=== PATIENT | female | born 1970 | race Caucasian/White ===

== ENCOUNTER → 2019-11-07 11:07 | Outpatient (BNVA) | payer MEDICAID, SELFPAY | PROVIDERS: PCP Registered Nurse; Visit Provider Registered Nurse | DX: Z79.899 Other long term (current) drug therapy (principal) | CPT/HCPCS: 80061; 80178; 83036 ==

== ENCOUNTER → 2019-12-11 11:00 | Outpatient (BNVA) | payer MEDICAID, SELFPAY | PROVIDERS: PCP Registered Nurse; Visit Provider Registered Nurse | DX: Z79.899 Other long term (current) drug therapy (principal); F31.61 Bipolar disorder, current episode mixed, mild | CPT/HCPCS: 80178 ==

== ENCOUNTER → 2020-01-09 10:48 | Outpatient (BNVA) | payer MEDICAID, SELFPAY | PROVIDERS: PCP Registered Nurse; Visit Provider Registered Nurse | DX: Z79.899 Other long term (current) drug therapy (principal) | CPT/HCPCS: 80178 ==

== ENCOUNTER → 2020-07-26 10:10 | Outpatient (BNVA) | payer MEDICAID, SELFPAY | PROVIDERS: PCP Registered Nurse; Visit Provider Registered Nurse | DX: Z79.899 Other long term (current) drug therapy (principal); F31.61 Bipolar disorder, current episode mixed, mild | CPT/HCPCS: 80053; 80178 ==

== ENCOUNTER → 2022-02-05 15:33 | Outpatient (BNVA) | payer MEDICAID, SELFPAY | PROVIDERS: PCP Registered Nurse; Visit Provider Emergency Medicine | DX: R06.02 Shortness of breath (principal); Z90.710 Acquired absence of both cervix and uterus; C76.2 Malignant neoplasm of abdomen | CPT/HCPCS: 71046 ==

== ENCOUNTER 2022-02-13 22:13 | Inpatient (IN) | payer MEDICAID, SELFPAY ==
[2022-02-13 22:27] VITALS: BP 195/106; PULSE 88; RESP 20; TEMP 36.6; O2SAT 97; BMI 38.7
[2022-02-13 23:15] LABS: Basophils # 0.1 10^3/uL (0.0-0.1); Basophils % 0.8 %; Eosinophils # 0.4 10^3/uL (0.0-0.8); Eosinophils % 4.6 %; Hematocrit 36.8 % (37.0-47.0); Hemoglobin 11.8 g/dL (11.5-15.3); Lymphocytes # 2.6 10^3/uL (0.8-4.8); Lymphocytes % 30.5 %; Mean Corpuscular HGB Conc 32.1 g/dL (30.0-36.0); Mean Corpuscular Hemoglobin 27.4 pg (28.0-34.0); Mean Corpuscular Volume 85.6 fl (81-99); Mean Platelet Volume 11.7 fL (7.4-10.4); Monocytes # 0.7 10^3/uL (0.2-0.9); Monocytes % 7.6 %; Neutrophils # 4.76 10^3/uL (1.8-7.7); Neutrophils % 55.9 %; Nucleated Red Blood Cells % 0 %; Platelet Count 262 10^3/cmm (130-400); Red Cell Distribution Width 13.6 % (12.1-15.1); White Blood Count 8.5 10^3/uL (4.0-10.0)
[2022-02-13 23:38] VITALS: BP 166/113; PULSE 86; RESP 20; O2SAT 96
[2022-02-13 23:39] LABS: Alanine Aminotransferase 18 U/L (0-33); Albumin Level 4.1 g/dL (3.5-5.2); Alkaline Phosphatase 57 IU/L (35-105); Anion Gap 18.2 (5-19); Aspartate Amino Transferase 18 U/L (0-32); Blood Urea Nitrogen 26 mg/dL (6-20); Calcium 8.9 mg/dL (8.5-10.5); Carbon Dioxide 21 mmol/L (22-29); Chloride 98 mmol/L (98-107); Globulin 2.8 g/dL (1.3-4.6); Glomerular Filtration Rate 43.2 mL/min (90-130); Glucose 169 mg/dL (65-115); Osmolality Calculated 285 mOsm/kg (285-295); Potassium 4.2 mmol/L (3.5-5.1); Sodium 133 mmol/L (136-145); Total Bilirubin 0.2 mg/dL (0.15-1.2); Total Protein 6.9 g/dL (6.6-8.7)
[2022-02-13 23:43] LABS: Acetaminophen < 5.0 ug/mL (10-30); Alcohol Level < 10 mg/dL (0-10); Salicylate < 0.3 mg/dL (3-10)
[2022-02-13 23:43] LABS: Add Urine Microscopic? NO; Charge for UA Resulting for Rev
[2022-02-13 23:45] LABS: Bilirubin Urine Neg (Negative); Blood Urine Neg (Negative); Glucose Urine UA 4+ (Normal); Ketones Urine Negative (Negative); Leukocyte Esterase Urine Negative (Negative); Nitrate Urine Negative (Negative); Protein Urine Neg (Negative); Specific Gravity, Urine 1.005 (1.005-1.030); Urine Appearance Clear (CLEAR); Urine Color Straw (Yellow); Urobilinogen Urine Norm (Negative); pH Urine 5 (5-7)
[2022-02-13 23:54] LABS: Amphetamines Screen Urine Negative (Negative); Barbiturates Screen Urine Negative (Negative); Benzodiazepines Screen Urine Negative (Negative); Cocaine Screen Urine Negative (Negative); Opiate Screen Urine Negative (Negative); PCP Screen Urine Negative (Negative); THC Screen Urine Negative (Negative)
[2022-02-14] VITALS: BP 180/116; PULSE 88; RESP 20; O2SAT 95
[2022-02-14] MEDS: amlodipine 10 mg Tablet PO (00:31)
[2022-02-14] MEDS: cloNIDine 0.1 mg Tablet 0.2 MG PO (00:31)
--- NOTE | 2022-02-14 00:31 | ED.C_ITS ---
HPI - Psych General: Chief Complaint: Psychiatric Symptoms Stated Complaint: Bi-Polar\SI Time Seen by Provider: 02/13/22 22:32 History of Present Illness: 51-year-old female with a history of bipolar disorder. She states she has not been hospitalized for depression since 2009. She had a hysterectomy 2 weeks ago roughly. Since that time she notes that her bipolar disorder has been hard to control . Her son says the same thing. He is with her this evening. She mention to nursing staff that at one point she thought her son was trying to kill her. She has had thoughts of harming herself, although she will not admit to a plan. She says soon after, but why would I want to hurt myself . She denies any fever. She denies increasing or worsening belly pain following surgery. No rashes or drainage. According to her and her son, she has been taking her medication appropriately. She did have a recent medication change, and is now taking vraylar. complaint: suicidal ideation and feels depressed Onset (ago): day(s) Duration: constant History of same: No Exacerbating factors: other Context: new medication(s) and significant life stressor Associated psychiatric symptoms: depression and suicidal ideation Associated symptoms: Reports delusions, depression, suicidal ideation and racing thoughts; Deny auditory hallucinations or visual hallucinations Treatments prior to arrival: none If self harm: admits thoughts of self harm Review of Systems Const: Denies: fever(s) or chills ENMT: Denies: throat pain Card: Denies: chest pain or palpitations Resp: Denies: dyspnea or productive cough GI: Reports: nausea; Denies: abdominal pain or vomiting Psych: Reports: depression and suicidal ideation; Denies: visual hallucinations or auditory hallucinations PFS ED PFSH: Medical History Abdominal malignancy Bipolar disorder, current episode manic severe with psychotic features Medication management Surgical History (Updated 02/05/22 @ 15:21 by OSIEL Desai) Status post hysterectomy Social History Smoking and tobacco status: never smoked Alcohol intake: never Female Reproductive History: Spontaneous abortions: No Physical Exam Const: GENERAL APPEARANCE: cooperative; not frail appearing ORIENTATION/CONSCIOUSNESS: Yes awake, Yes oriented to person and Yes oriented to place; not oriented to time HENMT: COMMON NORMALS: normocephalic, atraumatic and Normal external nose present HEAD & SCALP: normocephalic and atraumatic FACE & SINUS: normal facial exam NOSE: Normal external nose present Eye: COMMON NORMALS: Equal, round and reactive pupils present and EOMs intact bilaterally PUPIL: Yes Equal, round and reactive pupils present Chest: COMMONS NORMALS: normal inspection of the chest Resp: COMMON NORMALS: normal respiratory effort, No use of accessory muscles and clear to auscultation bilaterally AUSCULTATION: clear to auscultation bilaterally Cardio: COMMON NORMALS: regular rate and regular rhythm RATE: regular rate RHYTHM: regular rhythm GI: COMMON NORMALS: Normal to inspection, nondistended, normoactive bowel sounds present, Soft to palpation and non-tender PALPATION: Yes Soft to palpation OTHER: Laparoscopic incisions mildly red. No drainage Neuro: SENSORIUM/ORIENTATION: Yes oriented to person, Yes oriented to place and No oriented to time GAIT: Yes Unable to assess gait Psych: COMMON NORMALS: cooperative ATTITUDE: Yes calm ACTIVITY/MOTOR BEHAVIOR: Yes appropriate eye contact SPEECH: Yes excessive THOUGHT PROCESS: Circumstantial thought process present and disorganized THOUGHT CONTENT: Yes delusions Skin: COMMON NORMALS: no rashes or lesions noted GENERAL SKIN EXAM: no rashes or lesions noted Course Consultations: Consultation #1: justice Vital Signs: Vital signs: Vital Signs Temperature 97.8 F 02/13/22 22:27 Pulse Rate 85 02/14/22 01:06 Respiratory Rate 19 H 02/14/22 01:06 Blood Pressure 185/106 02/14/22 01:06 Pulse Oximetry 96 02/14/22 01:06 [facility] - Psych Medical Decision Making CBC is normal. Creatinine mildly elevated. Other labs are benign. She is medically stable at this point. She does give a history of thoughts of self- harm and suicide. She does not have a specific plan. Her son is here with her and concerned. Is been 12 years since she has been hospitalized for these types of symptoms. Do not know whether this is related to anesthesia from her surgery or not, or possibly somewhat new medication spoke with psychiatry, and giving suicidal ideation, they are willing to admit Lab Data : 02/13/22 23:07 02/13/22 23:07 Laboratory Results WBC 8.5 10^3/uL (4.0-10.0) 02/13/22 23:07 RBC 4.30 10^6/uL (4.1-5.3) 02/13/22 23:07 Hgb 11.8 g/dL (11.5-15.3) 02/13/22 23:07 Hct 36.8 % (37.0-47.0) L 02/13/22 23:07 MCV 85.6 fl (81-99) 02/13/22 23:07 MCH 27.4 pg (28.0-34.0) L 02/13/22 23:07 MCHC 32.1 g/dL (30.0-36.0) 02/13/22 23:07 RDW 13.6 % (12.1-15.1) 02/13/22 23:07 Plt Count 262 10^3/cmm (130-400) 02/13/22 23:07 MPV 11.7 fL (7.4-10.4) H 02/13/22 23:07 Neut % (Auto) 55.9 % 02/13/22 23:07 Lymph % (Auto) 30.5 % 02/13/22 23:07 [place] % (Auto) 7.6 % 02/13/22 23:07 Eos % (Auto) 4.6 % 02/13/22 23:07 Baso % (Auto) 0.8 % 02/13/22 23:07 Neut # (Auto) 4.76 10^3/uL (1.8-7.7) 02/13/22 23:07 Lymph # (Auto) 2.6 10^3/uL (0.8-4.8) 02/13/22 23:07 [place] # (Auto) 0.7 10^3/uL (0.2-0.9) 02/13/22 23:07 Eos # (Auto) 0.4 10^3/uL (0.0-0.8) 02/13/22 23:07 Baso # (Auto) 0.1 10^3/uL (0.0-0.1) 02/13/22 23:07 Nucleated RBC % (auto) 0 % 02/13/22 23:07 Nucleated RBCs # 0.0 /100WBC 02/13/22 23:07 Sodium 133 mmol/L (136-145) L 02/13/22 23:07 Potassium 4.2 mmol/L (3.5-5.1) 02/13/22 23:07 Chloride 98 mmol/L (98-107) 02/13/22 23:07 Carbon Dioxide 21 mmol/L (22-29) L 02/13/22 23:07 Anion Gap 18.2 (5-19) 02/13/22 23:07 BUN 26 mg/dL (6-20) H 02/13/22 23:07 Creatinine 1.3 mg/dL (0.5-0.9) H 02/13/22 23:07 GFR Calculation 43.2 mL/min (90-130) L 02/13/22 23:07 Glucose 169 mg/dL (65-115) H 02/13/22 23:07 Calculated Osmolality 285 mOsm/kg (285-295) 02/13/22 23:07 Calcium 8.9 mg/dL (8.5-10.5) 02/13/22 23:07 Total Bilirubin 0.2 mg/dL (0.15-1.2) 02/13/22 23:07 AST 18 U/L (0-32) 02/13/22 23:07 ALT 18 U/L (0-33) 02/13/22 23:07 Alkaline Phosphatase 57 IU/L (35-105) 02/13/22 23:07 Total Protein 6.9 g/dL (6.6-8.7) 02/13/22 23:07 Albumin 4.1 g/dL (3.5-5.2) 02/13/22 23:07 Globulin 2.8 g/dL (1.3-4.6) 02/13/22 23:07 Urine Color Straw (Yellow) 02/13/22 23:35 Urine Appearance Clear (CLEAR) 02/13/22 23:35 Urine pH 5 (5-7) 02/13/22 23:35 Ur Specific [place] 1.005 (1.005-1.030) 02/13/22 23:35 Urine Protein Neg (Negative) 02/13/22 23:35 Urine Glucose (UA) 4+ (Normal) H 02/13/22 23:35 Urine Ketones Negative (Negative) 02/13/22 23:35 Urine Blood Neg (Negative) 02/13/22 23:35 Urine Nitrate Negative (Negative) 02/13/22 23:35 Urine Bilirubin Neg (Negative) 02/13/22 23:35 Urine Urobilinogen Norm mg/dL (Negative) 02/13/22 23:35 Ur Leukocyte Esterase Negative (Negative) 02/13/22 23:35 Salicylates < 0.3 mg/dL (3-10) L 02/13/22 23:07 Urine Opiates Screen Negative ng/mL (Negative) 02/13/22 23:35 Acetaminophen < 5.0 ug/mL (10-30) L 02/13/22 23:07 Ur Barbiturates Screen Negative ng/mL (Negative) 02/13/22 23:35 Ur Phencyclidine Scrn Negative ng/mL (Negative) 02/13/22 23:35 Ur Amphetamines Screen Negative ng/mL (Negative) 02/13/22 23:35 U Benzodiazepines Scrn Negative ng/mL (Negative) 02/13/22 23:35 Urine Cocaine Screen Negative ng/mL (Negative) 02/13/22 23:35 U Marijuana (THC) Screen Negative ng/mL (Negative) 02/13/22 23:35 Ethyl Alcohol < 10 mg/dL (0-10) 02/13/22 23:07 Discharge Plan Discharge Patient Disposition: Admitted As Inpatient Admit Provider: Jeferson Rice Condition: Stable Coding Level of Care Code ED Communications Programmer for Yony Bunn
--- NOTE | 2022-02-14 00:53 | PC.NURSE ---
0053 Report called to [facility]
[2022-02-14 00:58] VITALS: BP 176/105
[2022-02-14 01:06] VITALS: BP 185/106; PULSE 85; RESP 19; O2SAT 96
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
[2022-02-14] MEDS: hyDROXYzine 25 mg Capsule 50 MG PO (02:07)
--- NOTE | 2022-02-14 02:25 | PC.NURSE ---
patient yelling loudly, asking this RN to change her crayons out to [place] the rules in her patient packet.
--- NOTE | 2022-02-14 02:26 | PC.NURSE ---
patient states she has not slept in 5 days. patient reports she wants something to help her sleep, patient continues to yell loudly, other patients waking up due to this behavior
--- NOTE | 2022-02-14 02:27 | PC.NURSE ---
patient agitated, attempting to verbally de escalate.
[2022-02-14] MEDS: diphenhydrAMINE 50 mg Capsule PO (02:32)
[2022-02-14] MEDS: haloperidol 5 mg Tablet PO (02:32)
[2022-02-14 05:47] VITALS: BP 167/85; PULSE 85; RESP 18; O2SAT 98
[2022-02-14] MEDS: acetaminophen 325 mg Tablet 650 MG PO ×2 (06:14→17:48)
[2022-02-14 07:01] LABS: Glucose Point of Care 236 mg/dL (70-110)
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
[2022-02-14] MEDS: isosorbide dinitrate 20 mg Tablet 5 MG PO ×3 (11:22→20:39)
[2022-02-14] MEDS: carvedilol 25 mg Tablet PO ×2 (11:22→17:37)
[2022-02-14 13:02] LABS: Glucose Point of Care 348 mg/dL (70-110)
[2022-02-14 14:00] VITALS: BP 150/80; PULSE 83; RESP 16; TEMP 36.8; O2SAT 98
[2022-02-14 16:35] LABS: Glucose Point of Care 232 mg/dL (70-110)
[2022-02-14] MEDS: insulin lispro 100 unit/1 mL SUBCUT ×2 (17:36→20:40)
[2022-02-14] MEDS: hyDRALAzine 50 mg Tablet 100 MG PO ×2 (17:37→20:40)
[2022-02-14 18:48] LABS: Glucose Point of Care 248 mg/dL (70-110)
[2022-02-14 19:58] LABS: Glucose Point of Care 232 mg/dL (70-110)
[2022-02-14] MEDS: trazodone 50 mg Tablet PO (20:39)
[2022-02-14] MEDS: docusate sodium 100 mg Capsule PO (20:40)
[2022-02-14] MEDS: insulin glargine 100 units/1 mL 40 UNIT SUBCUT (20:40)
[2022-02-14] MEDS: quetiapine 25 mg Tablet 50 MG PO (20:40)
[2022-02-14] MEDS: atorvastatin 40 mg Tablet 10 MG PO (20:40)
[2022-02-14 20:44] VITALS: BP 124/75; PULSE 78; RESP 16; TEMP 36.9; O2SAT 97
[2022-02-15] MEDS: acetaminophen 325 mg Tablet 650 MG PO ×4 (03:06→23:50)
[2022-02-15 05:33] VITALS: BMI 38.7
[2022-02-15 05:56] VITALS: BP 118/75; PULSE 77; RESP 16; TEMP 36.4; O2SAT 98
[2022-02-15] MEDS: docusate sodium 100 mg Capsule PO (06:10)
--- NOTE | 2022-02-15 06:12 | PC.NURSE ---
PATIENT REFUSED LAMICTAL THIS AM. STATES SHE IS ALLERGIC AND WILL GET HIVES. ALLERGY ADDED TO CHART.
[2022-02-15 06:48] LABS: Glucose Point of Care 216 mg/dL (70-110)
[2022-02-15] MEDS: carvedilol 25 mg Tablet PO ×2 (08:10→16:56)
[2022-02-15] MEDS: levothyroxine 175 mcg Tablet PO (08:10)
[2022-02-15] MEDS: cetirizine 10 mg Tablet PO (08:10)
[2022-02-15] MEDS: OLANZapine 5 mg ODT PO ×2 (08:10→16:56)
[2022-02-15] MEDS: insulin lispro 100 unit/1 mL SUBCUT ×4 (08:10→20:31)
[2022-02-15] MEDS: isosorbide dinitrate 20 mg Tablet 5 MG PO ×3 (08:11→20:23)
[2022-02-15] MEDS: hyDROXYzine 25 mg Capsule PO (08:11)
[2022-02-15] MEDS: hyDRALAzine 50 mg Tablet 100 MG PO ×3 (08:11→20:22)
--- NOTE | 2022-02-15 08:16 | W.PM.NPUPNS ---
Subjective NPU Subjective: Patient presents today seeming to be less confused per her. She says she is tolerating the increase in the Vraylar to 6 mg. Denies any other pressing issues and is hoping her significant other is coming to visit to discuss their continued relationship. Mental Status Exam MSE Comments: This is an obese white female in hospital scrubs with limited grooming and adequate eye contact.? No abnormal movements except for psychomotor retardation.? Cooperative with exam in no acute distress.? Speech was decreased rate and volume.? Mood described as good, affect flat.? Thought process mostly organized, with less moments of confusion.? Thought content: Patient denied suicidal or homicidal ideation, there were no delusions reported but some possible paranoid delusions, she endorsed he denied auditory hallucinations but was reporting that there were ants really in the bed that she was not sleeping in the room.? Attention and concentration appeared intact and memory appeared mostly reliable but none were formally tested.? She alert and oriented x3.? Insight and judgment are limited impulse control limited. Vitals/I&O/Wt Last Vital Signs Temp 97.6 F 02/15/22 05:56 Pulse 77 02/15/22 05:56 Resp 16 02/15/22 05:56 BP 118/75 02/15/22 05:56 Pulse Ox 98 02/15/22 05:56 Weight last 48 hrs Weight 108.862 kg Weight 108.862 kg Data NPU : 02/13/22 23:07 02/13/22 23:07 A&P Assessment and plan (1) Bipolar disorder with psychotic features: Status: Acute (2) Status post hysterectomy: Status: Acute (3) Abdominal malignancy: Status: Acute Plan This is a 51-year-old white female with multiple medical comorbidity including recent total hysterectomy who presents with paranoia and reporting that she feels like her family is trying to harm her with some missed doses of her medication and failure to increase patient is planned. 1.? Continue current medication.? Increased Vraylar to 6 mg p.o. daily. 2.? Continue every 15 minute checks for safety. 3.? Encourage individual, group and milieu therapies. 4.? Encourage sober living treatment after discharge at the highest level of care to which he is willing to commit. Involuntary Hold Information 96 Hour Hold: 96 Hour Involuntary Admission: No Attestations NPU Medical Necessity Statement*: Inpatient hospitalization is medically necessary and the clinically appropriate intervention at this time. We will monitor medication to make changes as indicated. Likely length of stay 2-4 days. Coding Level of Care Code Acute Collar Stay Fuser Tender for Chg Fwd Diagnoses Bipolar disorder with psychotic features F31.9 Status post hysterectomy Z90.710 Abdominal malignancy C76.2
[2022-02-15] MEDS: insulin glargine 100 units/1 mL 40 UNIT SUBCUT ×2 (09:53→17:00)
[2022-02-15 11:09] LABS: Glucose Point of Care 216 mg/dL (70-110)
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
[2022-02-15 14:00] VITALS: BP 148/88; PULSE 79; RESP 16; TEMP 36.4; O2SAT 97
[2022-02-15] MEDS: blistex lip oint 7 gm Tube 1 APPLIC TOPICAL (16:28)
[2022-02-15 16:31] LABS: Glucose Point of Care 251 mg/dL (70-110)
[2022-02-15] MEDS: atorvastatin 40 mg Tablet 10 MG PO (20:22)
[2022-02-15] MEDS: quetiapine 25 mg Tablet 50 MG PO (20:24)
[2022-02-15] MEDS: pantoprazole DR 40 mg Tablet PO (20:25)
[2022-02-15 20:29] LABS: Glucose Point of Care 239 mg/dL (70-110)
[2022-02-15 21:07] VITALS: BP 137/77; PULSE 77; RESP 17; TEMP 36.9; O2SAT 99
[2022-02-16 06:00] VITALS: BP 153/81; PULSE 85; RESP 17; TEMP 37.1; O2SAT 96
[2022-02-16] MEDS: levothyroxine 175 mcg Tablet PO (06:07)
[2022-02-16 06:30] LABS: Glucose Point of Care 192 mg/dL (70-110)
[2022-02-16] MEDS: insulin lispro 100 unit/1 mL SUBCUT ×4 (09:14→20:36)
[2022-02-16] MEDS: hyDRALAzine 50 mg Tablet 100 MG PO ×3 (09:15→20:26)
[2022-02-16] MEDS: cetirizine 10 mg Tablet PO (09:15)
[2022-02-16] MEDS: docusate sodium 100 mg Capsule PO (09:15)
[2022-02-16] MEDS: carvedilol 25 mg Tablet PO ×2 (09:15→17:13)
[2022-02-16] MEDS: isosorbide dinitrate 20 mg Tablet 5 MG PO ×3 (09:16→20:27)
[2022-02-16] MEDS: hyDROXYzine 25 mg Capsule 50 MG PO (09:16)
[2022-02-16] MEDS: insulin glargine 100 units/1 mL 40 UNIT SUBCUT ×2 (09:53→17:13)
[2022-02-16 14:00] VITALS: BP 102/72; PULSE 92; RESP 19; TEMP 36.7; O2SAT 97
[2022-02-16 16:53] LABS: Glucose Point of Care 216 mg/dL (70-110)
[2022-02-16 16:53] LABS: Glucose Point of Care 166 mg/dL (70-110)
[2022-02-16] MEDS: acetaminophen 325 mg Tablet 650 MG PO ×2 (17:59→23:08)
--- NOTE | 2022-02-16 18:53 | P.NPUPN_ITS ---
Subjective NPU Subjective: Patient presents today reporting that she is feeling better now and that the change in medication is helpful. She reports concerns about her 02/19/2022 appointment for follow-up for her recent hysterectomy and reporting that she has limited resources and must plan ahead to get to appointments. She is asking to be discharged the morning to be able to manage the issues. She reports that she is eating and sleeping better now. Mental Status Exam MSE Comments: This is an obese white female in hospital scrubs with limited grooming and adequate eye contact.? No abnormal movements except for psychomotor retardation.? Cooperative with exam in no acute distress.? Speech was more normal rate and volume.? Mood described as good, affect brighter.? Thought process mostly organized.? Thought content: Patient denied suicidal or homicidal ideation, there were no delusions reported but some possible paranoid delusions, she denied auditory or visual hallucinations. Attention and concentration appeared intact and memory appeared mostly reliable but none were formally tested.? She alert and oriented x3.? Insight and judgment are limited, but improving, impulse control limited. Vitals/I&O/Wt Last Vital Signs Temp 98.1 F 02/16/22 14:00 Pulse 92 02/16/22 14:00 Resp 19 H 02/16/22 14:00 BP 102/72 02/16/22 14:00 Pulse Ox 97 02/16/22 14:00 Weight last 48 hrs Weight 108.862 kg Data NPU : 02/13/22 23:07 02/13/22 23:07 A&P Assessment and plan (1) Bipolar disorder with psychotic features: Status: Acute (2) Abdominal malignancy: Status: Acute (3) Status post hysterectomy: Status: Acute Plan This is a 51-year-old white female with multiple medical comorbidity including recent total hysterectomy who presents with paranoia and reporting that she feels like her family is trying to harm her with some missed doses of her medication and failure to increase patient is planned. 1.? Continue current medication.? Increased Vraylar to 6 mg p.o. daily. 2.? Continue every 15 minute checks for safety. 3.? Encourage individual, group and milieu therapies. 4.? Encourage sober living treatment after discharge at the highest level of care to which he is willing to commit. Involuntary Hold Information 96 Hour Hold: 96 Hour Involuntary Admission: No Attestations NPU Medical Necessity Statement*: Inpatient hospitalization is medically necessary and the clinically appropriate intervention at this time. We will monitor medication to make changes as indicated.? Likely length of stay 1-3 days. Coding Level of Care Code Acute Automatic Quilling Machine Operator for Chg Fwd Diagnoses Bipolar disorder with psychotic features F31.9 Abdominal malignancy C76.2 Status post hysterectomy Z90.710
[2022-02-16 20:22] LABS: Glucose Point of Care 174 mg/dL (70-110)
[2022-02-16] MEDS: quetiapine 25 mg Tablet 50 MG PO (20:26)
[2022-02-16] MEDS: atorvastatin 40 mg Tablet 10 MG PO (20:27)
[2022-02-16] MEDS: pantoprazole DR 40 mg Tablet PO (20:28)
[2022-02-16 21:22] VITALS: BP 123/76; PULSE 83; RESP 19; TEMP 37.1; O2SAT 98
[2022-02-17] MEDS: nicotine 2 mg Gum BUCCAL (04:15)
[2022-02-17] MEDS: levothyroxine 175 mcg Tablet PO (04:16)
[2022-02-17 06:00] VITALS: BP 154/78; PULSE 80; RESP 18; TEMP 36.8; O2SAT 92
[2022-02-17 06:58] LABS: Glucose Point of Care 160 mg/dL (70-110)
[2022-02-17] MEDS: insulin glargine 100 units/1 mL 40 UNIT SUBCUT (10:10)
[2022-02-17] MEDS: insulin lispro 100 unit/1 mL SUBCUT ×2 (10:11→12:31)
[2022-02-17] MEDS: cetirizine 10 mg Tablet PO (10:12)
[2022-02-17] MEDS: carvedilol 25 mg Tablet PO (10:13)
[2022-02-17] MEDS: docusate sodium 100 mg Capsule PO (10:13)
[2022-02-17] MEDS: hyDRALAzine 50 mg Tablet 100 MG PO (10:13)
[2022-02-17] MEDS: isosorbide dinitrate 20 mg Tablet 5 MG PO (10:14)
[2022-02-17] MEDS: hyDROXYzine 25 mg Capsule PO (10:54)
[2022-02-17 11:42] LABS: Glucose Point of Care 147 mg/dL (70-110)
--- NOTE | 2022-02-17 12:18 | W.PM.NPUDCS ---
Diagnoses at Discharge Discharge Diagnosis (1) Bipolar disorder with psychotic features: Status: Acute (2) Abdominal malignancy: Status: Acute (3) Status post hysterectomy: Status: Acute Reason for Visit Reason for Visit: Bi-Polar\SI Hospital Course Hospital Course She slowly acclimated to the individual, group and milieu therapies provided. Her Vraylar was increased to 6 mg daily with a positive response. However it was not a full response but she was not on a hold and she was requesting to leave and her family was okay with her being discharged. She had an appointment with her doctor to follow-up from her hysterectomy and she did not want to miss that her having moved back. She is a voluntary patient with no signs of danger or concern during the hospitalization, patient had routine laboratory studies which were within normal limits except for few outliers. Additionally there was a general medical evaluation which was also within normal limits and revealed no new acute processes. Discharge Summary: At the time of discharge, lethality was denied and psychosis was resolving. Mood and anxiety were well managed. Patient endorsed a plan to avoid all drugs of abuse and follow-up with the aftercare recommendations of the treatment team. Patient was evaluated and deemed to be absent credible lethality, and so she was allowed to discharge although treatment team felt further improvement could be obtained in an inpatient setting. Involuntary Hold Information 96 Hour Hold: 96 Hour Involuntary Admission: No Mental Status Exam MSE Comments: This is an obese white female in hospital scrubs with limited grooming and adequate eye contact.? No abnormal movements except for psychomotor retardation.? Cooperative with exam in no acute distress.? Speech was more normal rate and volume.? Mood described as good, affect brighter.? Thought process mostly organized.? Thought content: Patient denied suicidal or homicidal ideation, there were no delusions reported but some possible paranoid delusions, she denied auditory or visual hallucinations.? Attention and concentration appeared intact and memory appeared mostly reliable but none were formally tested.? She alert and oriented x3.? Insight and judgment are limited, but improving, impulse control limited. Discharge Data Studies Completed and Pending: Laboratory Results WBC 8.5 10^3/uL (4.0- 10.0) 02/13/22 23:07 RBC 4.30 10^6/uL (4.1 -5.3) 02/13/22 23:07 Hgb 11.8 g/dL (11.5-1 5.3) 02/13/22 23:07 Hct 36.8 % (37.0-47.0 ) L 02/13/22 23:07 MCV 85.6 fl (81-99) 02/13/22 23:07 MCH 27.4 pg (28.0-34. 0) L 02/13/22 23:07 MCHC 32.1 g/dL (30.0-3 6.0) 02/13/22 23:07 RDW 13.6 % (12.1-15.1 ) 02/13/22 23:07 Plt Count 262 10^3/cmm (130 -400) 02/13/22 23:07 MPV 11.7 fL (7.4-10.4 ) H 02/13/22 23:07 Neut % (Auto) 55.9 % 02/13/22 23:07 Lymph % (Auto) 30.5 % 02/13/22 23:07 [place] % (Auto) 7.6 % 02/13/22 23:07 Eos % (Auto) 4.6 % 02/13/22 23:07 Baso % (Auto) 0.8 % 02/13/22 23:07 Neut # (Auto) 4.76 10^3/uL (1.8 -7.7) 02/13/22 23:07 Lymph # (Auto) 2.6 10^3/uL (0.8- 4.8) 02/13/22 23:07 [place] # (Auto) 0.7 10^3/uL (0.2- 0.9) 02/13/22 23:07 Eos # (Auto) 0.4 10^3/uL (0.0- 0.8) 02/13/22 23:07 Baso # (Auto) 0.1 10^3/uL (0.0- 0.1) 02/13/22 23:07 Nucleated RBC % (a uto) 0 % 02/13/22 23:07 Nucleated RBCs # 0.0 /100WBC 02/13/22 23:07 Sodium 133 mmol/L (136-1 45) L 02/13/22 23:07 Potassium 4.2 mmol/L (3.5-5 .1) 02/13/22 23:07 Chloride 98 mmol/L (98-107 ) 02/13/22 23:07 Carbon Dioxide 21 mmol/L (22-29) L 02/13/22 23:07 Anion Gap 18.2 (5-19) 02/13/22 23:07 BUN 26 mg/dL (6-20) H 02/13/22 23:07 Creatinine 1.3 mg/dL (0.5-0. 9) H 02/13/22 23:07 GFR Calculation 43.2 mL/min (90-1 30) L 02/13/22 23:07 Glucose 169 mg/dL (65-115 ) H 02/13/22 23:07 POC Glucose 147 mg/dL (70-110 ) H 02/17/22 11:38 Calculated Osmolal ity 285 mOsm/kg (285- 295) 02/13/22 23:07 Calcium 8.9 mg/dL (8.5-10 .5) 02/13/22 23:07 Total Bilirubin 0.2 mg/dL (0.15-1 .2) 02/13/22 23:07 AST 18 U/L (0-32) 02/13/22 23:07 ALT 18 U/L (0-33) 02/13/22 23:07 Alkaline Phosphata se 57 IU/L (35-105) 02/13/22 23:07 Total Protein 6.9 g/dL (6.6-8.7 ) 02/13/22 23:07 Albumin 4.1 g/dL (3.5-5.2 ) 02/13/22 23:07 Globulin 2.8 g/dL (1.3-4.6 ) 02/13/22 23:07 Urine Color Straw (Yellow) 02/13/22 23:35 Urine Appearance Clear (CLEAR) 02/13/22 23:35 Urine pH 5 (5-7) 02/13/22 23:35 Ur Specific Gravit y 1.005 (1.005-1.0 30) 02/13/22 23:35 Urine Protein Neg (Negative) 02/13/22 23:35 Urine Glucose (UA) 4+ (Normal) H 02/13/22 23:35 Urine Ketones Negative (Negati ve) 02/13/22 23:35 Urine Blood Neg (Negative) 02/13/22 23:35 Urine Nitrate Negative (Negati ve) 02/13/22 23:35 Urine Bilirubin Neg (Negative) 02/13/22 23:35 Urine Urobilinogen Norm mg/dL (Negat yasir) 02/13/22 23:35 Ur Leukocyte Keli ase Negative (Negati ve) 02/13/22 23:35 Salicylates < 0.3 mg/dL (3-10 ) L 02/13/22 23:07 Urine Opiates Scre en Negative ng/mL (N egative) 02/13/22 23:35 Acetaminophen < 5.0 ug/mL (10-3 0) L 02/13/22 23:07 Ur Barbiturates Sc reen Negative ng/mL (N egative) 02/13/22 23:35 Ur Phencyclidine S crn Negative ng/mL (N egative) 02/13/22 23:35 Ur Amphetamines Sc reen Negative ng/mL (N egative) 02/13/22 23:35 U Benzodiazepines Scrn Negative ng/mL (N egative) 02/13/22 23:35 Urine Cocaine Scre en Negative ng/mL (N egative) 02/13/22 23:35 U Marijuana (THC) Screen Negative ng/mL (N egative) 02/13/22 23:35 Ethyl Alcohol < 10 mg/dL (0-10) 02/13/22 23:07 Vitals: Last Vital Signs Temp 98.2 F 02/17/22 06:00 Pulse 80 02/17/22 06:00 Resp 18 02/17/22 06:00 BP 154/78 02/17/22 06:00 Pulse Ox 92 02/17/22 06:00 Discharge Plan Discharge Patient Disposition: Home Condition: Stable Prescriptions: New quetiapine 25 mg Tablet 50 mg PO BEDTIME 30 Days Qty: 60 1RF Cariprazine [Vraylar] 6 mg PO DAILY 30 Days Qty: 30 1RF hydralazine 50 mg Tablet 100 mg PO TID 30 Days Qty: 180 1RF Vortioxetine [Trintellix] 20 mg PO DAILY 30 Days Qty: 30 1RF isosorbide dinitrate 5 mg tablet 5 mg PO TID 30 Days Qty: 90 1RF Continued levothyroxine 175 mcg capsule 175 mcg PO DAILY 0RF Victoza 2-Parish 0.6 mg/0.1 mL (18 mg/3 mL) pen injector 1.8 mg SUBCUT Q24H 0RF Lantus U-100 Insulin 100 unit/mL solution 40 unit SUBCUT BID 0RF novolog PO 0RF omeprazole 20 mg Capsule,Delayed Release(Dr/Ec) 20 mg PO BEDTIME 0RF cetirizine 10 mg Tablet 10 mg PO DAILY 0RF quetiapine [Seroquel] 25 mg Tablet 25 - 50 mg PO DAILY PRN (Reason: SLEEP/ANXIETY) 0RF Discontinued Trintellix 20 mg tablet 5 mg PO QAM 0RF Vraylar 3 mg capsule 3 mg PO ONCE 0RF No Action atorvastatin 10 mg tablet 10 mg PO BEDTIME 0RF Discharge Orders: Discharge Order (Routine); Ordered 02/17/22 Ordered By: Jeferson Rice Referrals: [facility] [place] [Other] - 02/20/22 8:00 am (Please arrive 30mins early to complete admission paperwork or complete paperwork before arrival.) [facility] [Other] Archana Arambula [Primary Care Provider] - Discharge Diet: Regular Discharge Activity: Resume usual activity Patient Instructions: Opioid Safety Discharge Attestations NPU Time Spent in Discharge Care*: less than 30 min Specific Discharge Activities: Specific discharge activities: educating patient, discussing with rehabilitation case coordinator/social workers/dc planners, documenting/other paperwork and evaluating patient/reviewing data Coding Level of Care Code Acute Chg FW DC note Diagnoses Bipolar disorder with psychotic features F31.9 Abdominal malignancy C76.2 Status post hysterectomy Z90.710
[2022-02-17 12:29] VITALS: BP 154/78; PULSE 80; RESP 18; TEMP 36.8; O2SAT 92
[2022-02-17] MEDS: acetaminophen 325 mg Tablet 650 MG PO (12:52)
== END 2022-02-17 13:38 | disposition home or self-care (01) | DRG 885 ==
LOC: ER 02-14 00:34 → NP 02-14 00:50
PROVIDERS: Admitting Provider Psychiatry & Neurology Psychiatry; Emergency Provider Emergency Medicine; PCP Registered Nurse; Visit Provider Psychiatry & Neurology Psychiatry
DX: F31.9 Bipolar disorder, unspecified (principal); R45.851 Suicidal ideations; C76.2 Malignant neoplasm of abdomen; Z90.710 Acquired absence of both cervix and uterus
CPT/HCPCS: 36416; 80053; 80306; 80307; 81003; 82962; 85025; 96372; 97150; 97165; 99285; J1815 ×2; Q0163

== ENCOUNTER → 2022-02-20 07:47 | Outpatient (BNVA) | payer MEDICAID, SELFPAY | PROVIDERS: PCP Registered Nurse; Visit Provider Counselor Professional | DX: F31.9 Bipolar disorder, unspecified (principal) | CPT/HCPCS: 90791 ==

== ENCOUNTER 2022-02-21 08:02 | Inpatient (IN) | payer MEDICAID, SELFPAY ==
[2022-02-21 08:09] VITALS: BP 169/98; PULSE 88; RESP 14; TEMP 37.1; O2SAT 97; BMI 37.9
--- NOTE | 2022-02-21 08:33 | W.ED.PSYCHS ---
Documented by User: ALEXANDRE Sharpe 02/21/22 08:44 HPI - Psych General: Chief Complaint: Psychiatric Symptoms Stated Complaint: Psych Eval Time Seen by Provider: 02/21/22 08:14 History of Present Illness: Patient presents with history of bipolar disorder. Brother states patient has been talking out of her head for the last few days worse and she is left here. Not taking medications now. Is very paranoid. He just cannot make any sense out of what she is saying. He said this all started after she had her hysterectomy. Has been under good control with her bipolar prior to then. Associated symptoms: Reports visual hallucinations and delusions; Deny depression or suicidal ideation Review of Systems Narrative: History as per her older brother who is here with her right now. Patient denies any problems. Const: Denies: fever(s), chills or body aches Eyes: Denies: eye discomfort ENMT: Denies: throat pain Card: Denies: chest pain Resp: Denies: dyspnea GI: Denies: abdominal pain, nausea or vomiting Skin/Breast: Denies: rash Neuro: Denies: headache(s) Psych: Reports: anxiety, mood swings, paranoia, visual hallucinations and other (History of bipolar disorder); Denies: depression or suicidal ideation [facility] PFSH: Medical History Abdominal malignancy Bipolar disorder, current episode manic severe with psychotic features Medication management Surgical History (Updated 02/05/22 @ 15:21 by OSIEL Desai) Status post hysterectomy Social History Smoking and tobacco status: never smoked Alcohol intake: never Female Reproductive History: Spontaneous abortions: No Physical Exam Const: COMMON NORMALS: no acute distress, patient oriented x3 and alert HENMT: COMMON NORMALS: normocephalic and external ears normal HEAD & SCALP: normocephalic EXTERNAL EAR: Yes external ears normal Eye: COMMON NORMALS: EOMs intact bilaterally Neck/C-Spine: COMMON NORMALS: no JVD Resp: COMMON NORMALS: normal respiratory effort and No use of accessory muscles Cardio: COMMON NORMALS: no JVD GI: INSPECTION: Yes normal to inspection OTHER: Surgical sites are healing well. Extremity: COMMON NORMALS: normal to inspection and full ROM Neuro: COMMON NORMALS: patient oriented x3 SENSORIUM/ORIENTATION: Yes alert Psych: COMMON NORMALS: denies suicidal ideation ATTITUDE: Yes paranoid and Yes bizarre ACTIVITY/MOTOR BEHAVIOR: Yes disorganized behavior THOUGHT CONTENT: Yes delusions and Yes Hallucination(s) present JUDGEMENT: questionable Skin: COMMON NORMALS: no rashes or lesions noted GENERAL SKIN EXAM: no rashes or lesions noted Course Vital Signs: Vital signs: Vital Signs Temperature 98.0 F 02/26/22 14:00 Pulse Rate 99 02/26/22 14:00 Respiratory Rate 20 H 02/26/22 14:00 Blood Pressure 182/103 02/26/22 14:00 Pulse Oximetry 97 02/26/22 14:00 MDM - Psych Medical Decision Making Spoke with Dr. Rice agrees accept patient for admission. Report given to Dr. Schrader for admission orders Lab Data : 02/21/22 08:40 02/21/22 08:40 Laboratory Results WBC 5.9 10^3/uL (4.0-10.0) 02/21/22 08:40 RBC 4.29 10^6/uL (4.1-5.3) 02/21/22 08:40 Hgb 11.6 g/dL (11.5-15.3) 02/21/22 08:40 Hct 38.0 % (37.0-47.0) 02/21/22 08:40 MCV 88.6 fl (81-99) 02/21/22 08:40 MCH 27.0 pg (28.0-34.0) L 02/21/22 08:40 MCHC 30.5 g/dL (30.0-36.0) 02/21/22 08:40 RDW 14.0 % (12.1-15.1) 02/21/22 08:40 Plt Count 207 10^3/cmm (130-400) 02/21/22 08:40 MPV 12.2 fL (7.4-10.4) H 02/21/22 08:40 Neut % (Auto) 60.7 % 02/21/22 08:40 Lymph % (Auto) 26.9 % 02/21/22 08:40 [place] % (Auto) 7.3 % 02/21/22 08:40 Eos % (Auto) 4.1 % 02/21/22 08:40 Baso % (Auto) 0.7 % 02/21/22 08:40 Neut # (Auto) 3.56 10^3/uL (1.8-7.7) 02/21/22 08:40 Lymph # (Auto) 1.6 10^3/uL (0.8-4.8) 02/21/22 08:40 [place] # (Auto) 0.4 10^3/uL (0.2-0.9) 02/21/22 08:40 Eos # (Auto) 0.2 10^3/uL (0.0-0.8) 02/21/22 08:40 Baso # (Auto) 0.0 10^3/uL (0.0-0.1) 02/21/22 08:40 Nucleated RBC % (auto) 0 % 02/21/22 08:40 Nucleated RBCs # 0.0 /100WBC 02/21/22 08:40 Sodium 135 mmol/L (136-145) L 02/21/22 08:40 Potassium 4.6 mmol/L (3.5-5.1) 02/21/22 08:40 Chloride 102 mmol/L (98-107) 02/21/22 08:40 Carbon Dioxide 18 mmol/L (22-29) L 02/21/22 08:40 Anion Gap 19.6 (5-19) H 02/21/22 08:40 BUN 25 mg/dL (6-20) H 02/21/22 08:40 Creatinine 1.0 mg/dL (0.5-0.9) H 02/21/22 08:40 GFR Calculation 58.5 mL/min (90-130) L 02/21/22 08:40 Glucose 244 mg/dL (65-115) H 02/21/22 08:40 Calculated Osmolality 292 mOsm/kg (285-295) 02/21/22 08:40 Calcium 9.2 mg/dL (8.5-10.5) 02/21/22 08:40 Total Bilirubin 0.2 mg/dL (0.15-1.2) 02/21/22 08:40 AST 23 U/L (0-32) 02/21/22 08:40 ALT 24 U/L (0-33) 02/21/22 08:40 Alkaline Phosphatase 69 IU/L (35-105) 02/21/22 08:40 Total Protein 6.9 g/dL (6.6-8.7) 02/21/22 08:40 Albumin 3.8 g/dL (3.5-5.2) 02/21/22 08:40 Globulin 3.1 g/dL (1.3-4.6) 02/21/22 08:40 TSH 1.88 uIU/mL (0.27-4.20) 02/21/22 08:40 Salicylates < 0.3 mg/dL (3-10) L 02/21/22 08:40 Acetaminophen < 5.0 ug/mL (10-30) L 02/21/22 08:40 Discharge Plan Discharge Admit Provider: Jeferson Rice Condition: Stable Sign Out Sign Out Data: Patient Sign Out occurred on 02/21/22 at 08:53. Patient's care was discussed, and care was transferred from to Ronnie Schrader MD. Coding Level of Care Code ED Heel Coverer Machine Operator for Chg Fwd Exam Comprehensive Documented by User: Ronnie Schrader MD 02/26/22 19:38 HPI - Psych General: Chief Complaint: Psychiatric Symptoms Stated Complaint: Psych Eval Time Seen by Provider: 02/21/22 08:14 PFS ED PFSH: Medical History Abdominal malignancy Bipolar disorder, current episode manic severe with psychotic features Medication management Surgical History (Updated 02/05/22 @ 15:21 by OSIEL Desai) Status post hysterectomy Social History Smoking and tobacco status: never smoked Alcohol intake: never Course Vital Signs: Vital signs: Vital Signs Temperature 98.0 F 02/26/22 14:00 Pulse Rate 99 02/26/22 14:00 Respiratory Rate 20 H 02/26/22 14:00 Blood Pressure 182/103 02/26/22 14:00 Pulse Oximetry 97 02/26/22 14:00 MDM - Psych Medical Decision Making Spoke with Dr. Rice agrees accept patient for admission. Report given to Dr. Schrader for admission orders Patient care discussed with Jeramie Graham NP. Laboratory studies reviewed. Recommend good p.o. intake. Admission orders placed. Ronnie Schrader MD Emergency Medicine Lab Data : 02/21/22 08:40 02/21/22 08:40 Laboratory Results WBC 5.9 10^3/uL (4.0-10.0) 02/21/22 08:40 RBC 4.29 10^6/uL (4.1-5.3) 02/21/22 08:40 Hgb 11.6 g/dL (11.5-15.3) 02/21/22 08:40 Hct 38.0 % (37.0-47.0) 02/21/22 08:40 MCV 88.6 fl (81-99) 02/21/22 08:40 MCH 27.0 pg (28.0-34.0) L 02/21/22 08:40 MCHC 30.5 g/dL (30.0-36.0) 02/21/22 08:40 RDW 14.0 % (12.1-15.1) 02/21/22 08:40 Plt Count 207 10^3/cmm (130-400) 02/21/22 08:40 MPV 12.2 fL (7.4-10.4) H 02/21/22 08:40 Neut % (Auto) 60.7 % 02/21/22 08:40 Lymph % (Auto) 26.9 % 02/21/22 08:40 [place] % (Auto) 7.3 % 02/21/22 08:40 Eos % (Auto) 4.1 % 02/21/22 08:40 Baso % (Auto) 0.7 % 02/21/22 08:40 Neut # (Auto) 3.56 10^3/uL (1.8-7.7) 02/21/22 08:40 Lymph # (Auto) 1.6 10^3/uL (0.8-4.8) 02/21/22 08:40 [place] # (Auto) 0.4 10^3/uL (0.2-0.9) 02/21/22 08:40 Eos # (Auto) 0.2 10^3/uL (0.0-0.8) 02/21/22 08:40 Baso # (Auto) 0.0 10^3/uL (0.0-0.1) 02/21/22 08:40 Nucleated RBC % (auto) 0 % 02/21/22 08:40 Nucleated RBCs # 0.0 /100WBC 02/21/22 08:40 Sodium 135 mmol/L (136-145) L 02/21/22 08:40 Potassium 4.6 mmol/L (3.5-5.1) 02/21/22 08:40 Chloride 102 mmol/L (98-107) 02/21/22 08:40 Carbon Dioxide 18 mmol/L (22-29) L 02/21/22 08:40 Anion Gap 19.6 (5-19) H 02/21/22 08:40 BUN 25 mg/dL (6-20) H 02/21/22 08:40 Creatinine 1.0 mg/dL (0.5-0.9) H 02/21/22 08:40 GFR Calculation 58.5 mL/min (90-130) L 02/21/22 08:40 Glucose 244 mg/dL (65-115) H 02/21/22 08:40 Calculated Osmolality 292 mOsm/kg (285-295) 02/21/22 08:40 Calcium 9.2 mg/dL (8.5-10.5) 02/21/22 08:40 Total Bilirubin 0.2 mg/dL (0.15-1.2) 02/21/22 08:40 AST 23 U/L (0-32) 02/21/22 08:40 ALT 24 U/L (0-33) 02/21/22 08:40 Alkaline Phosphatase 69 IU/L (35-105) 02/21/22 08:40 Total Protein 6.9 g/dL (6.6-8.7) 02/21/22 08:40 Albumin 3.8 g/dL (3.5-5.2) 02/21/22 08:40 Globulin 3.1 g/dL (1.3-4.6) 02/21/22 08:40 TSH 1.88 uIU/mL (0.27-4.20) 02/21/22 08:40 Salicylates < 0.3 mg/dL (3-10) L 02/21/22 08:40 Acetaminophen < 5.0 ug/mL (10-30) L 02/21/22 08:40 Discharge Plan Discharge Admit Provider: Jeferson Rice Condition: Stable Sign Out Sign Out Data: Patient Sign Out occurred on 02/21/22 at 08:53. Patient's care was discussed, and care was transferred from to Ronnie Schrader MD. Coding Level of Care Code ED Heel Coverer Machine Operator for Chg Fwd Exam Comprehensive
[2022-02-21 08:41] VITALS: BP 169/98; PULSE 88; RESP 14; TEMP 37.1; O2SAT 97
[2022-02-21 09:14] LABS: Basophils % 0.7 %; Eosinophils # 0.2 10^3/uL (0.0-0.8); Eosinophils % 4.1 %; Hemoglobin 11.6 g/dL (11.5-15.3); Lymphocytes # 1.6 10^3/uL (0.8-4.8); Lymphocytes % 26.9 %; Mean Corpuscular HGB Conc 30.5 g/dL (30.0-36.0); Mean Corpuscular Volume 88.6 fl (81-99); Mean Platelet Volume 12.2 fL (7.4-10.4); Monocytes # 0.4 10^3/uL (0.2-0.9); Monocytes % 7.3 %; Neutrophils # 3.56 10^3/uL (1.8-7.7); Neutrophils % 60.7 %; Nucleated Red Blood Cells % 0 %; Platelet Count 207 10^3/cmm (130-400); Red Blood Count 4.29 10^6/uL (4.1-5.3); White Blood Count 5.9 10^3/uL (4.0-10.0)
[2022-02-21 09:37] LABS: Alanine Aminotransferase 24 U/L (0-33); Albumin Level 3.8 g/dL (3.5-5.2); Alkaline Phosphatase 69 IU/L (35-105); Anion Gap 19.6 (5-19); Aspartate Amino Transferase 23 U/L (0-32); Blood Urea Nitrogen 25 mg/dL (6-20); Calcium 9.2 mg/dL (8.5-10.5); Carbon Dioxide 18 mmol/L (22-29); Chloride 102 mmol/L (98-107); Globulin 3.1 g/dL (1.3-4.6); Glomerular Filtration Rate 58.5 mL/min (90-130); Glucose 244 mg/dL (65-115); Osmolality Calculated 292 mOsm/kg (285-295); Potassium 4.6 mmol/L (3.5-5.1); Sodium 135 mmol/L (136-145); Thyroid Stimulating Hormone 1.88 uIU/mL (0.27-4.20); Total Bilirubin 0.2 mg/dL (0.15-1.2); Total Protein 6.9 g/dL (6.6-8.7)
[2022-02-21 09:38] LABS: Acetaminophen < 5.0 ug/mL (10-30); Salicylate < 0.3 mg/dL (3-10)
[2022-02-21 10:34] VITALS: BP 181/84; PULSE 85; RESP 18; TEMP 36.8; O2SAT 97
--- NOTE | 2022-02-21 11:12 | PC.NURSE ---
ADMISSION PER ER- Patient presents with history of bipolar disorder. Brother states patient has been talking out of her head for the last few days worse and she is left here. Not taking medications now. Is very paranoid. He just cannot make any sense out of what she is saying. He said this all started after she had her hysterectomy. Has been under good control with her bipolar prior to then. Associated symptoms: Reports visual hallucinations and delusions.Deny depression or suicidal ideation. UPON ARRIVAL TO NPU PT IS DISORGANIZED IN THOUGHT PROCESS. HAS FLIGHTS OF IDEAS AND FREQUENTLY GIVES CONTIDICTING INFORMATIONS. DELUSIONAL AT THIS TIME. REPORTS AVH. STATES UNK DX AND HX. MEDICATIONS RESUMED BY PHARMACY LIST AND PREVIOUS STAY PT UNABLE TO VERBALIZE MEDICATIONS. CONTRACTS FOR SAFETY BUT DOES REPORT INTRUSIVE THOUGHTS OF SI AND HI TOWARDS EVERYONE. DENIES ANY INTENT. RAMBLING SPEECH, STATES IS BUT HAS RECENT HYSTERECTOMY. REDNESS NOTED TO SURGICAL SCARS, KNOT UNDER RIGHT SIDE INCISION, NO WARMTH NOTED. NO TOX SCREEN COMPLETED IN ED.
[2022-02-21] MEDS: insulin glargine 100 units/1 mL 40 UNIT SUBCUT ×2 (11:22→20:56)
[2022-02-21 11:23] LABS: Glucose Point of Care 181 mg/dL (70-110)
--- NOTE | 2022-02-21 11:41 | PC.NURSE ---
urine in lab.
[2022-02-21] MEDS: LORazepam 2 mg Tablet PO (13:11)
[2022-02-21] MEDS: haloperidol 5 mg Tablet PO (13:11)
[2022-02-21] MEDS: diphenhydrAMINE 50 mg Capsule PO (13:11)
[2022-02-21] MEDS: hyDROXYzine 25 mg Capsule 50 MG PO (13:54)
[2022-02-21 14:00] VITALS: BP 180/98; PULSE 18; RESP 18; TEMP 36.8; O2SAT 97
[2022-02-21] MEDS: isosorbide dinitrate 20 mg Tablet 5 MG PO ×2 (15:25→20:58)
[2022-02-21] MEDS: hyDRALAzine 50 mg Tablet 100 MG PO ×2 (15:25→20:58)
[2022-02-21] MEDS: OLANZapine 5 mg ODT PO (15:57)
[2022-02-21 20:36] VITALS: BP 170/102; PULSE 98; RESP 16; TEMP 36.8; O2SAT 105
[2022-02-21 20:37] LABS: Glucose Point of Care 250 mg/dL (70-110)
[2022-02-21] MEDS: pantoprazole DR 40 mg Tablet PO (20:57)
[2022-02-21] MEDS: quetiapine 25 mg Tablet 50 MG PO (20:57)
[2022-02-21] MEDS: atorvastatin 40 mg Tablet 20 MG PO (23:37)
[2022-02-22] MEDS: hyDROXYzine 25 mg Capsule 50 MG PO ×2 (04:56→18:29)
[2022-02-22 06:00] VITALS: BP 154/95; PULSE 102; RESP 16; TEMP 36.7; O2SAT 97
[2022-02-22 06:14] LABS: Glucose Point of Care 230 mg/dL (70-110)
[2022-02-22] MEDS: insulin lispro 100 unit/1 mL SUBCUT ×3 (06:51→16:36)
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
[2022-02-22] MEDS: cetirizine 10 mg Tablet PO (08:37)
[2022-02-22] MEDS: levothyroxine 175 mcg Tablet PO (08:37)
[2022-02-22] MEDS: OLANZapine 5 mg ODT PO (08:37)
[2022-02-22] MEDS: hyDRALAzine 50 mg Tablet 100 MG PO ×3 (08:38→20:27)
[2022-02-22] MEDS: insulin glargine 100 units/1 mL 40 UNIT SUBCUT ×2 (08:39→20:31)
[2022-02-22] MEDS: isosorbide dinitrate 20 mg Tablet 5 MG PO ×3 (08:39→20:26)
[2022-02-22] MEDS: docusate sodium 100 mg Capsule PO (10:16)
[2022-02-22 11:17] LABS: Glucose Point of Care 205 mg/dL (70-110)
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
[2022-02-22 14:00] VITALS: BP 185/108; PULSE 107; RESP 19; TEMP 36.8; O2SAT 97
[2022-02-22] MEDS: acetaminophen 325 mg Tablet 650 MG PO ×2 (14:18→20:26)
--- NOTE | 2022-02-22 14:42 | PC.NURSE ---
C/O HEAD ACHE 4/10 TYLENOL GIVEN ORDERED.
[2022-02-22] MEDS: haloperidol 5 mg Tablet PO (14:48)
--- NOTE | 2022-02-22 14:54 | PC.NURSE ---
PRN MEDICATION CONTINUES TO BE INTRUSIVE, DEMANDING AND DELUSIONAL. HAS TAKEN 4 SHOWERS SINCE 8 AM. STATES SHE ALLERGIC TO THE BABY SHAMPOO THAT SHE HAS USED 3 TIMES. THIS GAVE DIFFERENT SHAMPOO TO APPEASE HER. HALDOL 5 MG GIVEN ORDERED FOR INCREASED ANXIETY.
[2022-02-22 16:32] LABS: Glucose Point of Care 215 mg/dL (70-110)
--- NOTE | 2022-02-22 18:31 | PC.NURSE ---
PRN MEDICATION CONTINUES TO BE INTRUSIVE AT THE NURSES STATION. REDIRECTED MULTIPLE TIMES WITH LITTLE RESOLVE. MULTIPLE COMPLAINTS, SOMATIC WITH COMPLAINTS. VISTARIL 50 MG GIVEN ORDERED. REDIRECTED TO GO TO ROOM AND READ.
[2022-02-22 19:54] LABS: Glucose Point of Care 325 mg/dL (70-110)
[2022-02-22] MEDS: atorvastatin 40 mg Tablet 20 MG PO (20:28)
[2022-02-22] MEDS: pantoprazole DR 40 mg Tablet PO (20:28)
[2022-02-22] MEDS: trazodone 50 mg Tablet PO (20:30)
[2022-02-22 20:45] VITALS: BP 166/96; PULSE 108; RESP 18; TEMP 36.4; O2SAT 96
--- NOTE | 2022-02-23 01:01 | PC.NURSE ---
Addendum entered by Fide Polanco RN 02/23/22 01:02: Patient c/o trouble sleeping and had refused her scheduled quietiapine and stated she was allergic to seroquel and that it gives her hives, no side effects to medication were noted on previous administration by this nurse. Offered PRN trazodone, patient accepted, given as ordered with noted effectiveness. Original Note: PRN ADMIN Patient c/o foot pain and requested tylenol. PRN tylenol given as ordered with no effectiveness. Patient stated she has has chronic foot pain from previous injuries. Given ice pack to alleviate pain as requested.
[2022-02-23 06:00] VITALS: BP 151/90; PULSE 84; RESP 16; O2SAT 98
[2022-02-23 06:29] LABS: Glucose Point of Care 179 mg/dL (70-110)
[2022-02-23] MEDS: insulin lispro 100 unit/1 mL SUBCUT ×2 (07:08→11:27)
--- NOTE | 2022-02-23 07:22 | P.NPUPN_ITS ---
Subjective NPU Subjective: Patient presents today reporting that she is ready to go home. Lengthy discussion about the fact that she just left and returned after sayings ready to go home. She reported that her son was planning to pick her up and we discussed the fact that we are not ready to discharge her and she still having symptoms. She still was very focused on her boyfriend and how that impacted her coming back but at seem to forget that she endorsed not taking her medications as prescribed. We endorsed wanting her to be more stable prior to discharge. Mental Status Exam MSE Comments: This is an obese white female in hospital scrubs with limited grooming and adequate eye contact.? No abnormal movements except for psychomotor retardation.? Cooperative with exam in no acute distress.? Speech was more normal rate and volume.? Mood described as good, affect slightly subdued.? Thought process mostly organized.? Thought content: Patient denied suicidal or homicidal ideation, there were no delusions reported but some paranoid, somatic and hypersexual delusions exist she denied auditory or visual hallucinations.? Attention and concentration appeared intact and memory appeared unreliable but none were formally tested.? She alert and oriented x3.? Insight and judgment are limited, but improving, impulse control limited.? Vitals/I&O/Wt Last Vital Signs Temp 97.6 F 02/22/22 20:45 Pulse 84 02/23/22 06:00 Resp 16 02/23/22 06:00 BP 151/90 02/23/22 06:00 Pulse Ox 98 02/23/22 06:00 Weight last 48 hrs Weight 106.594 kg Data NPU : 02/21/22 08:40 02/21/22 08:40 A&P Assessment and plan (1) Bipolar disorder with psychotic features: Status: Acute (2) Abdominal malignancy: Status: Acute (3) Status post hysterectomy: Status: Acute Plan This is a 51-year-old white female with multiple medical comorbidities including recent total hysterectomy who presents after being discharged just 4 days ago with continued paranoia, somatic delusions and hypersexuality who was unable to maintain appropriate management of her medication and continue her improvement after discharge 1.? Continue current medication.? 2.? Continue every 15 minute checks for safety. 3.? Encourage individual, group and milieu therapies. 4.? Encourage sober living treatment after discharge at the highest level of care to which he is willing to commit. Involuntary Hold Information 96 Hour Hold: 96 Hour Involuntary Admission: No Attestations NPU Medical Necessity Statement*: Inpatient hospitalization is medically necessary and the clinically appropriate intervention at this time. We will monitor medication to make changes as indicated. Likely length of stay 2-4 days. 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
[2022-02-23] MEDS: cetirizine 10 mg Tablet PO (08:18)
[2022-02-23] MEDS: insulin glargine 100 units/1 mL 40 UNIT SUBCUT ×2 (08:18→20:36)
[2022-02-23] MEDS: hyDRALAzine 50 mg Tablet 100 MG PO ×3 (08:18→20:34)
[2022-02-23] MEDS: isosorbide dinitrate 20 mg Tablet 5 MG PO ×3 (08:19→20:34)
[2022-02-23] MEDS: levothyroxine 175 mcg Tablet PO (08:19)
[2022-02-23] MEDS: nicotine 2 mg Gum BUCCAL (10:05)
[2022-02-23 11:26] LABS: Glucose Point of Care 186 mg/dL (70-110)
[2022-02-23] MEDS: acetaminophen 325 mg Tablet 650 MG PO ×2 (11:26→21:32)
[2022-02-23] MEDS: OLANZapine 5 mg ODT PO (11:27)
[2022-02-23 13:59] VITALS: BP 145/91; PULSE 105; RESP 16; TEMP 36.6; O2SAT 97
[2022-02-23 16:31] LABS: Glucose Point of Care 132 mg/dL (70-110)
[2022-02-23] MEDS: haloperidol 5 mg Tablet PO (18:15)
[2022-02-23 20:31] LABS: Glucose Point of Care 166 mg/dL (70-110)
[2022-02-23] MEDS: atorvastatin 40 mg Tablet 20 MG PO (20:34)
[2022-02-23] MEDS: quetiapine 25 mg Tablet 50 MG PO (20:34)
[2022-02-23] MEDS: pantoprazole DR 40 mg Tablet PO (20:34)
[2022-02-23 20:42] VITALS: BP 168/90; PULSE 96; RESP 16; TEMP 36.7; O2SAT 97
--- NOTE | 2022-02-24 04:31 | PC.NURSE ---
PT UP AT START OF SHIFT. REMAINED TO SELF IN DAYROOM. THOUGHT PROCESS REMAINED SOMEWHAT PARANOID ABOUT OTHERS. DENIES AVH AND SI. STATED MAYBE SOME HI WITH INTENT. PT MOVED TO ROOM WITHOUT ROOMMATE D/T FEELINGS OF PARANOIA ABOUT BEING BULLIED. PT ACCEPTING OF ROOM CHANGE. HAS BEEN MOSTLY RESTING IN BED WITHOUT DISTRESS NOTED, HAS BEEN UP BRIEFLY AT TIMES BUT HAS RETURNED TO RESTING QUICKLY.
[2022-02-24] MEDS: docusate sodium 100 mg Capsule PO (05:53)
[2022-02-24 06:00] VITALS: BP 160/95; PULSE 98; RESP 18; TEMP 36.7; O2SAT 97
[2022-02-24 06:49] LABS: Glucose Point of Care 155 mg/dL (70-110)
[2022-02-24] MEDS: cetirizine 10 mg Tablet PO (08:30)
[2022-02-24] MEDS: levothyroxine 175 mcg Tablet PO (08:31)
[2022-02-24] MEDS: hyDRALAzine 50 mg Tablet 100 MG PO ×3 (08:31→20:13)
[2022-02-24] MEDS: isosorbide dinitrate 20 mg Tablet 5 MG PO ×3 (08:31→20:13)
[2022-02-24] MEDS: insulin glargine 100 units/1 mL 40 UNIT SUBCUT ×2 (08:34→21:25)
[2022-02-24] MEDS: insulin lispro 100 unit/1 mL SUBCUT ×3 (08:34→18:10)
[2022-02-24 11:56] LABS: Glucose Point of Care 225 mg/dL (70-110)
[2022-02-24] MEDS: hyDROXYzine 25 mg Capsule 50 MG PO (13:20)
[2022-02-24 14:00] VITALS: BP 107/70; PULSE 105; RESP 17; TEMP 36.5; O2SAT 98
--- NOTE | 2022-02-24 16:47 | W.PM.NPUPNS ---
Subjective NPU Subjective: Patient presents today seeming a little more out of sorts than usual. She continue to focus on her [id number] and her [id number] smoking habits. She Insinuating that somehow I had been speaking to her and knew that she was out in a parking smoking like a chimney. She told a fantasy story about the going up to her and telling her she needed to stop smoking and that she would not agree to accept my recommendation. We agreed we would continue to work with her brother to make arrangements for her to move there when she was being reasonable for discharge. She continues to express a desire to leave but is redirectable with conversation about the end goal. Mental Status Exam MSE Comments: This is an obese white female in hospital scrubs with limited grooming and adequate eye contact.? No abnormal movements except for psychomotor retardation.? Cooperative with exam in no acute distress.? Speech was more normal rate and volume.? Mood described as I am okay, affect slightly subdued.? Thought process mostly organized.? Thought content: Patient denied suicidal or homicidal ideation, there were no delusions reported but some paranoid, somatic and hypersexual delusions exist. She denied auditory or visual hallucinations.? Attention and concentration appeared intact and memory appeared unreliable but none were formally tested.? She alert and oriented x3.? Insight and judgment are limited, but improving, impulse control limited.? Vitals/I&O/Wt Last Vital Signs Temp 97.7 F 02/24/22 14:00 Pulse 105 H 02/24/22 14:00 Resp 17 02/24/22 14:00 BP 107/70 02/24/22 14:00 Pulse Ox 98 02/24/22 14:00 Data NPU : 02/21/22 08:40 02/21/22 08:40 A&P Assessment and plan (1) Bipolar disorder with psychotic features: Status: Acute (2) Abdominal malignancy: Status: Acute (3) Status post hysterectomy: Status: Acute Plan This is a 51-year-old white female with multiple medical comorbidities including recent total hysterectomy who presents after being discharged just 4 days ago with continued paranoia, somatic delusions and hypersexuality who was unable to maintain appropriate management of her medication and continue her improvement after discharge 1.? Continue current medication.? May need to consider a possible mood stabilizer to add to her Vraylar. 2.? Continue every 15 minute checks for safety. 3.? Encourage individual, group and milieu therapies. 4.? Encourage sober living treatment after discharge at the highest level of care to which he is willing to commit. Involuntary Hold Information 96 Hour Hold: 96 Hour Involuntary Admission: No Attestations NPU Medical Necessity Statement*: Inpatient hospitalization is medically necessary and the clinically appropriate intervention at this time. We will monitor medication to make changes as indicated. Likely length of stay 2-4 days. 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
--- NOTE | 2022-02-24 17:11 | PC.SOCIAL ---
Patient attended and participated in group.
[2022-02-24 17:52] LABS: Glucose Point of Care 177 mg/dL (70-110)
[2022-02-24] MEDS: atorvastatin 40 mg Tablet 20 MG PO (20:12)
[2022-02-24] MEDS: pantoprazole DR 40 mg Tablet PO (20:14)
[2022-02-24 20:48] LABS: Glucose Point of Care 224 mg/dL (70-110)
[2022-02-24 21:11] VITALS: BP 154/98; PULSE 111; RESP 19; TEMP 36.5; O2SAT 98
[2022-02-25] MEDS: quetiapine 25 mg Tablet PO (01:56)
[2022-02-25] MEDS: levothyroxine 175 mcg Tablet PO (05:02)
[2022-02-25 05:40] VITALS: BP 117/73; PULSE 83; RESP 16; TEMP 36.7; O2SAT 94
[2022-02-25 06:41] LABS: Glucose Point of Care 151 mg/dL (70-110)
[2022-02-25] MEDS: hyDRALAzine 50 mg Tablet 100 MG PO ×3 (08:54→20:11)
[2022-02-25] MEDS: cetirizine 10 mg Tablet PO (08:55)
[2022-02-25] MEDS: isosorbide dinitrate 20 mg Tablet 5 MG PO ×3 (08:55→20:11)
[2022-02-25] MEDS: insulin lispro 100 unit/1 mL SUBCUT ×2 (08:57→17:26)
[2022-02-25] MEDS: insulin glargine 100 units/1 mL 40 UNIT SUBCUT ×2 (09:21→21:03)
[2022-02-25 11:37] LABS: Glucose Point of Care 132 mg/dL (70-110)
[2022-02-25 14:00] VITALS: BP 168/95; PULSE 96; RESP 18; TEMP 36.7; O2SAT 99
--- NOTE | 2022-02-25 14:52 | P.NPUPN_ITS ---
Subjective NPU Subjective: Patient presents today continuing to report that she is doing fine and trying to get a hold of her brother and [id number]. We discussed her continued need for hospitalization given her confusion. She continues to open to stay and be treatment team on options for follow-up. He discussed briefly the possibility of considering that. She does feel that the Vraylar is still helping but that she would consider adding something else. She reports eating and sleeping fairly well but still was asking about maybe a muscle relaxer to help her sleep reporting she was up and down. Mental Status Exam MSE Comments: This is an obese white female in hospital scrubs with limited grooming and adequate eye contact.? No abnormal movements except for psychomotor retardation.? Cooperative with exam in no acute distress.? Speech was more normal rate and volume.? Mood described as pretty good, affect slightly subdued.? Thought process mostly organized.? Thought content: Patient denied suicidal or homicidal ideation, there were no delusions reported but some paranoid, somatic and hypersexual delusions exist.? She denied auditory or visual hallucinations.? Attention and concentration appeared intact and memory appeared unreliable but none were formally tested.? She alert and oriented x3.? Insight and judgment are limited, but improving, impulse control limited.? Vitals/I&O/Wt Last Vital Signs Temp 98.0 F 02/25/22 14:00 Pulse 96 02/25/22 14:00 Resp 18 02/25/22 14:00 BP 168/95 02/25/22 14:00 Pulse Ox 99 02/25/22 14:00 Data NPU : 02/21/22 08:40 02/21/22 08:40 A&P Assessment and plan (1) Bipolar disorder with psychotic features: Status: Acute (2) Abdominal malignancy: Status: Acute (3) Status post hysterectomy: Status: Acute Plan This is a 51-year-old white female with multiple medical comorbidities including recent total hysterectomy who presents after being discharged just 4 days ago with continued paranoia, somatic delusions and hypersexuality who was unable to maintain appropriate management of her medication and continue her improvement after discharge 1.? Continue current medication.? May need to consider a possible mood stabilizer to add to her Vraylar. 2.? Continue every 15 minute checks for safety. 3.? Encourage individual, group and milieu therapies. 4.? Encourage sober living treatment after discharge at the highest level of care to which he is willing to commit. Involuntary Hold Information 96 Hour Hold: 96 Hour Involuntary Admission: No Attestations NPU Medical Necessity Statement*: Inpatient hospitalization is medically necessary and the clinically appropriate intervention at this time. We will monitor medication to make changes as indicated. Likely length of stay 2-4 days. Coding Level of Care Code Acute School Cook for [facility] F[facility] Diagnoses Bipolar disorder with psychotic features F31.9 Abdominal malignancy C76.2 Status post hysterectomy Z90.710
[2022-02-25 17:25] LABS: Glucose Point of Care 192 mg/dL (70-110)
[2022-02-25] MEDS: pantoprazole DR 40 mg Tablet PO (20:11)
[2022-02-25] MEDS: quetiapine 25 mg Tablet 50 MG PO (20:11)
[2022-02-25] MEDS: atorvastatin 40 mg Tablet 20 MG PO (20:12)
[2022-02-25 20:24] LABS: Glucose Point of Care 202 mg/dL (70-110)
[2022-02-25 20:55] VITALS: BP 148/94; PULSE 93; RESP 18; TEMP 36.4; O2SAT 99
[2022-02-26 06:00] VITALS: BP 163/99; PULSE 92; RESP 16; TEMP 36.7; O2SAT 98
[2022-02-26] MEDS: levothyroxine 175 mcg Tablet PO (06:03)
[2022-02-26] MEDS: acetaminophen 325 mg Tablet 650 MG PO ×2 (06:16→09:59)
[2022-02-26 06:33] LABS: Glucose Point of Care 196 mg/dL (70-110)
[2022-02-26] MEDS: isosorbide dinitrate 20 mg Tablet 5 MG PO ×3 (09:58→20:13)
[2022-02-26] MEDS: hyDRALAzine 50 mg Tablet 100 MG PO ×3 (09:58→20:14)
[2022-02-26] MEDS: docusate sodium 100 mg Capsule PO (10:00)
[2022-02-26] MEDS: cetirizine 10 mg Tablet PO (10:00)
[2022-02-26] MEDS: OLANZapine 5 mg ODT PO ×2 (10:00→17:17)
[2022-02-26] MEDS: insulin glargine 100 units/1 mL 40 UNIT SUBCUT ×2 (10:01→20:13)
[2022-02-26] MEDS: insulin lispro 100 unit/1 mL SUBCUT ×3 (10:05→17:02)
[2022-02-26 11:23] LABS: Glucose Point of Care 220 mg/dL (70-110)
[2022-02-26] MEDS: haloperidol 5 mg Tablet PO (13:30)
--- NOTE | 2022-02-26 13:55 | PC.SOCIAL ---
Patient attended and participated in group.
--- NOTE | 2022-02-26 13:58 | PC.NURSE ---
PRN MEDICATION C/O OF ANXIETY. CONTINUES TO BE DELUSIONAL AND BELIEVES SOMEONE TOOK HER BOOK OUT OF MY ROOM INFORMED PT NO ONE TOOK ANYTHING OUT OF ROOM AND THIS RN WOULD HELP HER LOOK FOR IT. ONCE RN WENT TO HELP HER LOOK PT FORGOT WHAT SHE HAD SAID OR WHAT SHE HAD LOST. PT STATES SHE IS ANXIOUS AND PT IS VISIBLY ANXIOUS. HALDOL 5 MG GIVEN ORDERED FOR ANXIETY,.
[2022-02-26 14:00] VITALS: BP 182/103; PULSE 99; RESP 20; TEMP 36.7; O2SAT 97
--- NOTE | 2022-02-26 15:09 | P.NPUPN_ITS ---
Subjective NPU Subjective: She says that she is doing much better and ready to go home. Unfortunately, she is not sleeping well. She says she used to be on Seroquel 300 mg and is not sleeping on the 50 mg. She agreed to increase that to 100 mg and see what happens. She also feels that the very large is not controlling her bipolar mood swings. She says that people are playing tricks on her. Someone took a book that had a judaism book inside from her room. Someone said that one of the nurses had done it but the nurse said that she did not and the patient believes her. She also gave her clocks which she said are worth $400 to one of the other patients. She is trying to give her a sweatshirt and returned to get the crocks back. While we were talking evidently the other patient put the sweater on the bathroom door. She said numerous other things which did not make sense and is clearly still not thinking very clearly. She reluctantly agreed to stay 1 more day. Hopefully she will sleep better on the Seroquel 100 mg. Mental Status Exam MSE Comments: This is an obese white female in hospital scrubs with limited grooming and adequate eye contact.? No abnormal movements except for psychomotor retardation.? Cooperative with exam in no acute distress.? Speech was more normal rate and volume.? Mood described as good, affect slightly subdued.? Thought process mostly organized.? Thought content: Patient denied suicidal or homicidal ideation, there were no delusions reported but some paranoid, somatic delusions exist.? She denied auditory or visual hallucinations.? Attention and concentration appeared intact and memory appeared unreliable but none were formally tested.? She alert and oriented x3.? Insight and judgment are limited, but improving, impulse control limited.? Cognition: Patient Appearance: Appropriate Level of Consciousness: Disoriented Patient Cognition Impaired: Yes Ability to Follow Directions: Fair Patient Orientation (long list): Person, Place, Time and Name Comprehension Ability: Mild Impairment Hallucination Type: None Delusion Description: Not Present, Grandiose, Paranoid Ideation and Persecutory Thought Process: Tangential Affect: Affect Description: Appropriate Behavior: Patient Behavior: Cooperative, Impulsive and Somatic Speech Pattern: Appropriate and Clear Vitals/I&O/Wt Last Vital Signs Temp 98.0 F 02/26/22 14:00 Pulse 99 02/26/22 14:00 Resp 20 H 05/05/22 14:00 BP 182/103 02/26/22 14:00 Pulse Ox 97 02/26/22 14:00 Data NPU : 02/21/22 08:40 02/21/22 08:40 A&P Assessment and plan (1) Bipolar disorder with psychotic features: Status: Acute (2) Abdominal malignancy: Status: Acute (3) Status post hysterectomy: Status: Acute Plan This is a 51-year-old white female with multiple medical comorbidities including recent total hysterectomy who presents after being discharged just 4 days ago with continued paranoia, somatic delusions and hypersexuality who was unable to maintain appropriate management of her medication and continue her improvement after discharge 1.? Continue current medication.? May need to consider a possible mood stabilizer to add to her Vraylar. Increase Seroquel to 100 mg 2.? Continue every 15 minute checks for safety. 3.? Encourage individual, group and milieu therapies. 4.? Encourage sober living treatment after discharge at the highest level of care to which he is willing to commit. Involuntary Hold Information 96 Hour Hold: 96 Hour Involuntary Admission: No Attestations NPU Medical Necessity Statement*: Inpatient hospitalization is medically necessary and the clinically appropriate intervention at this time. We will initiate medications and make changes as indicated. Coding Level of Care Code Acute Roving Winder for Yony Godfreyd Diagnoses Bipolar disorder with psychotic features F31.9 Abdominal malignancy C76.2 Status post hysterectomy Z90.710
[2022-02-26 16:50] LABS: Glucose Point of Care 250 mg/dL (70-110)
[2022-02-26 19:45] LABS: Glucose Point of Care 208 mg/dL (70-110)
[2022-02-26] MEDS: pantoprazole DR 40 mg Tablet PO (20:13)
[2022-02-26] MEDS: atorvastatin 40 mg Tablet 20 MG PO (20:14)
[2022-02-26] MEDS: quetiapine 100 mg Tablet PO (20:15)
[2022-02-26 20:52] VITALS: BP 155/92; PULSE 104; RESP 16; TEMP 36.6; O2SAT 95
[2022-02-27] MEDS: diphenhydrAMINE 50 mg Capsule PO (01:35)
[2022-02-27] MEDS: nicotine 2 mg Gum BUCCAL ×2 (04:16→12:17)
[2022-02-27] MEDS: hyDROXYzine 25 mg Capsule 50 MG PO (04:29)
--- NOTE | 2022-02-27 04:30 | PC.NURSE ---
PATIENT REQUESTED MEDICATION FOR ANXIETY. VISTERIL WAS GIVEN BUT PT ONLY WANTED 25 MG. 25MG WAS WASTED.
[2022-02-27] MEDS: levothyroxine 175 mcg Tablet PO (05:16)
[2022-02-27 07:33] LABS: Glucose Point of Care 210 mg/dL (70-110)
[2022-02-27] MEDS: isosorbide dinitrate 20 mg Tablet 5 MG PO (08:03)
[2022-02-27] MEDS: hyDRALAzine 50 mg Tablet 100 MG PO (08:03)
[2022-02-27] MEDS: insulin glargine 100 units/1 mL 40 UNIT SUBCUT (08:05)
[2022-02-27] MEDS: insulin lispro 100 unit/1 mL SUBCUT ×2 (08:05→12:16)
--- NOTE | 2022-02-27 09:09 | PC.NURSE ---
refused scheduled zyrtec, pt states she is allergic
[2022-02-27 12:13] LABS: Glucose Point of Care 169 mg/dL (70-110)
--- NOTE | 2022-02-27 12:24 | P.NPUDS_ITS ---
Diagnoses at Discharge Discharge Diagnosis (1) Bipolar disorder with psychotic features: Status: Acute (2) Abdominal malignancy: Status: Acute (3) Status post hysterectomy: Status: Acute Reason for Visit Reason for Visit: Psych Eval Brief History: History of Present Illness Aleksandra Fairbanks is a 51 year old female who presented to the emergency department with the following report: Chief Complaint: Psychiatric Symptoms Stated Complaint: Psych Eval Time Seen by Provider: 02/21/22 08:14 History of Present Illness:?? Patient presents with history of bipolar disorder.? Brother states patient has been talking out of her head for the last few days worse and she is left here.? Not taking medications now.? Is very paranoid.? He just cannot make any sense out of what she is saying.? He said this all started after she had her hysterectomy.? Has been under good control with her bipolar prior to then. Associated symptoms: Reports visual hallucinations and delusions; Deny depression or suicidal ideation She was admitted to the neuropsychiatric unit for definitive treatment of those issues.? She was discharged 4 to 5 days ago per her own request even though the treatment team did not think she was fully ready to go.? She left with her significant other and presents today reporting that they have now spent and she was taking the medications wrong.? Reporting that some time she was taking too much sometimes he was taking it not enough.? She reports that got things out of sorts plus her significant other had found a new girlfriend while she was in the hospital but she reports that because he is a skin head.? She continued to have clear signs of paranoia she was believing she was even though she just had a hysterectomy which we discussed was likely a major factor in her having this manic/psychotic episode.? We agreed that we would continue her medication as prescribed and see if we can get her stabilized over the next several days and make changes as indicated and she understood agreed proceed as is documented in this note.? An excerpt of her discharge summary from 5 days ago is included below for context and the fact that there have been a few changes and have been no substantive changes. Hospital Course Hospital Course She slowly acclimated to the individual, group and milieu therapies provided. She was continued on her outpatient medications except for Seroquel which was increased to 100 mg which was not quite enough. She insisted on leaving and was discharged with 150 mg. She tolerated these doses and showed steady improvement during her stay. She was able to contract for safety outside hospital prior to discharge. During the hospitalization, patient had routine laboratory studies which were within normal limits except for few outliers. Additionally there was a general medical evaluation which was also within normal limits and revealed no new acute processes. Discharge Summary: At the time of discharge, lethality was denied and psychosis was resolving. She did not believe anyone had played tricks on her in the last 24 hours. Mood and anxiety were well managed. Patient endorsed a plan to follow-up with the aftercare recommendations of the treatment team. Patient was evaluated and deemed to be absent credible lethality, and had achieved the maximum benefit from an inpatient hospitalization, so was discharged. Involuntary Hold Information 96 Hour Hold: 96 Hour Involuntary Admission: No Mental Status Exam MSE Comments: This is an obese white female in hospital scrubs with limited grooming and adequate eye contact.? No abnormal movements except for psychomotor retardation.? Cooperative with exam in no acute distress.? Speech was more normal rate and volume.? Mood described as good, affect slightly subdued.? Thought process mostly organized.? Thought content: Patient denied suicidal or homicidal ideation, there were no delusions reported but some paranoid, somatic delusions exist.? She did not believe anyone had played tricks on her in the last 24 hours. She denied auditory or visual hallucinations.? Attention and concentration appeared intact and memory appeared unreliable but none were formally tested.? She alert and oriented x3.? Insight and judgment are limited, but improving, impulse control limited.? Cognition: Patient Appearance: Appropriate Level of Consciousness: Disoriented Patient Cognition Impaired: Yes Ability to Follow Directions: Fair Patient Orientation (long list): Person, Place, Time and Name Comprehension Ability: Mild Impairment Hallucination Type: None Delusion Description: Not Present, Grandiose, Paranoid Ideation and Persecutory Thought Process: Tangential Affect: Affect Description: Calm Behavior: Patient Behavior: Appropriate and Cooperative Speech Pattern: Appropriate and Clear Discharge Data Studies Completed and Pending: Laboratory Results WBC 5.9 10^3/uL (4.0- 10.0) 02/21/22 08:40 RBC 4.29 10^6/uL (4.1 -5.3) 02/21/22 08:40 Hgb 11.6 g/dL (11.5-1 5.3) 02/21/22 08:40 Hct 38.0 % (37.0-47.0 ) 02/21/22 08:40 MCV 88.6 fl (81-99) 02/21/22 08:40 MCH 27.0 pg (28.0-34. 0) L 02/21/22 08:40 MCHC 30.5 g/dL (30.0-3 6.0) 02/21/22 08:40 RDW 14.0 % (12.1-15.1 ) 02/21/22 08:40 Plt Count 207 10^3/cmm (130 -400) 02/21/22 08:40 MPV 12.2 fL (7.4-10.4 ) H 02/21/22 08:40 Neut % (Auto) 60.7 % 02/21/22 08:40 Lymph % (Auto) 26.9 % 02/21/22 08:40 [place] % (Auto) 7.3 % 02/21/22 08:40 Eos % (Auto) 4.1 % 02/21/22 08:40 Baso % (Auto) 0.7 % 02/21/22 08:40 Neut # (Auto) 3.56 10^3/uL (1.8 -7.7) 02/21/22 08:40 Lymph # (Auto) 1.6 10^3/uL (0.8- 4.8) 02/21/22 08:40 [place] # (Auto) 0.4 10^3/uL (0.2- 0.9) 02/21/22 08:40 Eos # (Auto) 0.2 10^3/uL (0.0- 0.8) 02/21/22 08:40 Baso # (Auto) 0.0 10^3/uL (0.0- 0.1) 02/21/22 08:40 Nucleated RBC % (a uto) 0 % 02/21/22 08:40 Nucleated RBCs # 0.0 /100WBC 02/21/22 08:40 Sodium 135 mmol/L (136-1 45) L 02/21/22 08:40 Potassium 4.6 mmol/L (3.5-5 .1) 02/21/22 08:40 Chloride 102 mmol/L (98-10 7) 02/21/22 08:40 Carbon Dioxide 18 mmol/L (22-29) L 02/21/22 08:40 Anion Gap 19.6 (5-19) H 02/21/22 08:40 BUN 25 mg/dL (6-20) H 02/21/22 08:40 Creatinine 1.0 mg/dL (0.5-0. 9) H 02/21/22 08:40 GFR Calculation 58.5 mL/min (90-1 30) L 02/21/22 08:40 Glucose 244 mg/dL (65-115 ) H 02/21/22 08:40 POC Glucose 169 mg/dL (70-110 ) H 02/27/22 12:00 Calculated Osmolal ity 292 mOsm/kg (285- 295) 02/21/22 08:40 Calcium 9.2 mg/dL (8.5-10 .5) 02/21/22 08:40 Total Bilirubin 0.2 mg/dL (0.15-1 .2) 02/21/22 08:40 AST 23 U/L (0-32) 02/21/22 08:40 ALT 24 U/L (0-33) 02/21/22 08:40 Alkaline Phosphata se 69 IU/L (35-105) 02/21/22 08:40 Total Protein 6.9 g/dL (6.6-8.7 ) 02/21/22 08:40 Albumin 3.8 g/dL (3.5-5.2 ) 02/21/22 08:40 Globulin 3.1 g/dL (1.3-4.6 ) 02/21/22 08:40 TSH 1.88 uIU/mL (0.27 -4.20) 02/21/22 08:40 Salicylates < 0.3 mg/dL (3-10 ) L 02/21/22 08:40 Acetaminophen < 5.0 ug/mL (10-3 0) L 02/21/22 08:40 Vitals: Last Vital Signs Temp 97.9 F 02/26/22 20:52 Pulse 104 H 02/26/22 20:52 Resp 16 02/26/22 20:52 BP 155/92 02/26/22 20:52 Pulse Ox 95 02/26/22 20:52 Discharge Plan Discharge Patient Disposition: Home Condition: Stable Prescriptions: New quetiapine 100 mg Tablet 150 mg PO BEDTIME 30 Days Qty: 45 1RF Continued levothyroxine 175 mcg capsule 175 mcg PO DAILY 0RF Victoza 2-Parish 0.6 mg/0.1 mL (18 mg/3 mL) pen injector 1.8 mg SUBCUT Q24H 0RF Lantus U-100 Insulin 100 unit/mL solution 40 unit SUBCUT BID 0RF novolog PO 0RF omeprazole 20 mg Capsule,Delayed Release(Dr/Ec) 20 mg PO BEDTIME 0RF cetirizine 10 mg Tablet 10 mg PO DAILY 0RF quetiapine [Seroquel] 25 mg Tablet 25 - 50 mg PO DAILY PRN (Reason: SLEEP/ANXIETY) 0RF Cariprazine [Vraylar] 6 mg PO DAILY 30 Days Qty: 30 1RF hydralazine 50 mg Tablet 100 mg PO TID 30 Days Qty: 180 1RF Vortioxetine [Trintellix] 20 mg PO DAILY 30 Days Qty: 30 1RF isosorbide dinitrate 5 mg tablet 5 mg PO TID 30 Days Qty: 90 1RF atorvastatin 10 mg tablet 10 mg PO BEDTIME 0RF Jardiance 25 mg tablet 25 mg PO DAILY 0RF Discontinued quetiapine 25 mg Tablet 50 mg PO BEDTIME 30 Days Qty: 60 1RF Discharge Orders: Discharge Order (Routine); Ordered 02/27/22 Ordered By: Yovanny Velasquez Referrals: [facility] [Outside] (On waiting list for therapy. You will be called with appointment. ) Archana Arambula [Primary Care Provider] - 03/09/22 2:30 pm Pee Cook DO [Referring] - 03/24/22 1:40 pm Discharge Diet: Diabetic Discharge Activity: Resume usual activity Patient Instructions: Opioid Safety Discharge Attestations NPU Time Spent in Discharge Care*: greater than 30 min Specific Discharge Activities: Specific discharge activities: educating patient, discussing with patient case manager/social workers/dc planners, documenting/other paperwork and evaluating patient/reviewing data Coding Level of Care Code Acute Chg FW DC note Diagnoses Bipolar disorder with psychotic features F31.9 Abdominal malignancy C76.2 Status post hysterectomy Z90.710
[2022-02-27 12:32] VITALS: BP 155/92; PULSE 104; RESP 16; TEMP 36.6; O2SAT 95
== END 2022-02-27 13:51 | disposition home or self-care (01) | DRG 885 ==
LOC: ER 08:40 → NP 08:53
PROVIDERS: Nurse Practitioner Family; Admitting Provider Psychiatry & Neurology Psychiatry; Emergency Provider Emergency Medicine; PCP Registered Nurse; Visit Provider Psychiatry & Neurology Psychiatry
DX: F31.9 Bipolar disorder, unspecified (principal)
CPT/HCPCS: 36416; 80053; 80307; 82962; 84443; 85025; 96372; 97150; 97165; 99285; J1815 ×2; Q0163

== ENCOUNTER → 2022-03-09 15:44 | Outpatient (BNVA) | payer MEDICAID, SELFPAY | PROVIDERS: PCP Registered Nurse; Visit Provider Registered Nurse | DX: Z79.899 Other long term (current) drug therapy (principal) | CPT/HCPCS: 80053; 80061; 82306; 83036; 85025 ==

== ENCOUNTER → 2022-04-08 08:45 | Outpatient (BNVA) | payer MEDICAID, SELFPAY | PROVIDERS: PCP Registered Nurse; Visit Provider Registered Nurse | DX: Z79.899 Other long term (current) drug therapy (principal) | CPT/HCPCS: 80156 ==

== ENCOUNTER 2022-07-26 15:58 | Outpatient (CLI) | payer MEDICAID, SELFPAY ==
--- NOTE | 2022-07-26 16:03 | USR_ITS ---
PROCEDURE INFORMATION: Exam: US Duplex Left Lower Extremity Veins, Limited Exam date and time: 07/26/2022 4:07 PM Age: 51 years old Clinical indication: Pain; Leg, upper and leg, lower; Left; Additional info: Lt leg pain and swelling TECHNIQUE: Imaging protocol: Real-time Duplex ultrasound of the Left Lower Extremity with 2-D acosta scale, color Doppler flow and spectral waveform analysis with image documentation. Limited exam focused on the left lower extremity veins. COMPARISON: No relevant prior studies available. FINDINGS: Left deep veins: Unremarkable. The common femoral, femoral, proximal profunda femoral and popliteal veins are patent without thrombus. Normal Doppler waveforms. Normal compressibility and/or augmentation response. Left superficial veins: Unremarkable. Saphenofemoral junction is patent without thrombus. Soft tissues: Unremarkable. US/CV venous duplex [facility] [id number] IMPRESSION: No evidence of deep vein thrombosis.
== END 2022-07-26 15:59 | disposition home or self-care (01) ==
PROVIDERS: PCP Family Medicine; Visit Provider Emergency Medicine
DX: M79.605 Pain in left leg (principal); M79.604 Pain in right leg; M79.89 Other specified soft tissue disorders
CPT/HCPCS: 93971

== ENCOUNTER → 2023-03-31 14:04 | Outpatient (BNVA) | payer MEDICAID, SELFPAY | PROVIDERS: PCP Family Medicine; Visit Provider Registered Nurse | DX: Z79.899 Other long term (current) drug therapy (principal) | CPT/HCPCS: 80053; 80061; 80156; 82306; 82607; 83036; 83540; 83721; 84443; 85025 ==

== ENCOUNTER → 2023-05-17 14:57 | Outpatient (BNVA) | payer MEDICAID, SELFPAY ==
[2023-04-16 11:25] VITALS: BP 156/78; BMI 40.0
== END ==
PROVIDERS: PCP Family Medicine; Visit Provider Nurse Practitioner Family
DX: E11.9 Type 2 diabetes mellitus without complications (principal); E86.0 Dehydration
CPT/HCPCS: 81000; 82962

== ENCOUNTER 2023-10-21 18:46 | Inpatient (IN) | payer MEDICAID, SELFPAY ==
[2023-04-16 11:25] VITALS: BP 156/78; BMI 40.0
[2023-10-21 18:50] VITALS: BP 181/98; PULSE 84; RESP 18; TEMP 36.7; O2SAT 97; BMI 39.4
--- NOTE | 2023-10-21 18:51 | ED.C_ITS ---
HPI - Psych 2 General: Chief Complaint: Psychiatric Symptoms Stated Complaint: si Time Seen by Provider: 10/21/23 18:47 Source: patient and EMS Mode of arrival: EMS Limitations: no limitations History of Present Illness: 52-year-old female has a history depress ion along with bipolar she states she just recently started BuSpar and her physician in stopping her bipolar meds state over the last 2 to 3 days she has been having suicidal ideation she states she has a plan to wreck her car to kill herself denies any worsening proving factors. Associated symptoms: Reports depression and suicidal ideation Review of Systems 2 Const: Denies: fever(s), chills, body aches or change in appetite ENMT: Denies: throat pain or dental pain Card: Denies: chest pain Resp: Denies: dyspnea GI: Denies: abdominal pain, nausea, vomiting or diarrhea Musc: Denies: neck pain or back pain Skin/Breast: Denies: rash Neuro: Denies: headache(s) Psych: Reports: depression and suicidal ideation PFS ED 2 PFSH: Medical History (Updated 10/21/23 @ 19:38 by Fredrick Shine MD) Diabetes mellitus Anxiety Insomnia Abdominal malignancy Medication management Bipolar disorder, current episode manic severe with psychotic features Surgical History Status post hysterectomy Family History (Updated 10/20/23 @ 16:13 by Abdiel Mccoy) Other Bipolar disorder with psychotic features Social History Smoking and tobacco/nicotine status: never used tobacco/nicotine Second hand smoke exposure: Yes Alcohol intake: never Substance/Drug Use: never Adopted: No Caregiver/support person: No Lives independently: Yes Household members: family Housing: House Marital status: Number of children: 3 Number of grandchildren: 0 Highest education level completed: 11th Grade service: No Current occupational status: disabled Pets and animals: Yes Pets & animals: dog(s) Leisure activites: exercise, fishing, reading and other Leisure activities details: swimming Do you think of yourself as: Straight/Heterosexual Current gender identity: Female Missy/Sabianist: Mosque Special missy needs: No Agree to transfusion: Yes Female Reproductive History: Spontaneous abortions: No Physical Exam 2 Const: COMMON NORMALS: no acute distress, patient oriented x3 and healthy appearing HENMT: COMMON NORMALS: normocephalic and atraumatic HEAD & SCALP: n ormocephalic and atraumatic Neck/C-Spine: COMMON NORMALS: full ROM and supple Chest: COMMONS NORMALS: normal inspection of the chest and normal palpation of entire chest wall Resp: COMMON NORMALS: normal respiratory effort Cardio: COMMON NORMALS: regular rate, regular rhythm and No murmurs present (Cardio) RATE: regular rate RHYTHM: regular rhythm Extremity: COMMON NORMALS: normal to inspection and full ROM Neuro: COMMON NORMALS: patient oriented x3, moves all extremities and no focal motor deficits Psych: COMMON NORMALS: mental status grossly normal, Normal thought process present and cooperative MOOD & AFFECT: Yes depressed mood THOUGHT PROCESS: Normal thought process present THOUGHT CONTENT: Yes Suicidality present Skin: COMMON NORMALS: no rashes or lesions noted and no wounds GENERAL SKIN EXAM: no rashes or lesions noted Course 2 Vital Signs: Vital signs: Vital Signs Temperature 98.0 F 10/21/23 18:50 Pulse Rate 84 10/21/23 18:50 Respiratory Rate 18 10/21/23 18:50 Blood Pressure 181/98 10/21/23 18:50 Pulse Oximetry 97 10/21/23 18:50 Oxygen Delivery Me thod Room Air 10/21/23 18:50 MDM - Psych Medical Decision Making Patient presents here with suicidal ideations with a plan of crashing her car patient placed under 96-hour hold she is medically cleared I spoke to psychiatrist will admit. Medical Records I reviewed the patient's medical records. Lab Data I reviewed the patient's lab results. 10/21/23 18:59 10/21/23 18:59 Laboratory Results WBC 5.47 10^3/uL (3.29-11.43) 10/21/23 18:59 RBC 3.70 10^6/uL (3.85-5.65) L 10/21/23 18:59 Hgb 10.80 g/dL (11.27-16.99) L 10/21/23 18:59 Hct 34.1 % (36-47) L 10/21/23 18:59 MCV 92.2 fl (85-98) 10/21/23 18:59 MCH 29.2 pg (27-33) 10/21/23 18:59 MCHC 31.7 g/dL (30-55) 10/21/23 18:59 RDW 13.4 % (12.1-15.1) 10/21/23 18:59 Plt Count 191 10^3/cmm (157-399) 10/21/23 18:59 MPV 11.1 fL (7.4-10.4) H 10/21/23 18:59 Neut % (Auto) 55.1 % 10/21/23 18:59 Lymph % (Auto) 34.4 % 10/21/23 18:59 [place] % (Auto) 6.4 % 10/21/23 18:59 Eos % (Auto) 2.7 % 10/21/23 18:59 Baso % (Auto) 0.5 % 10/21/23 18:59 Neut # (Auto) 3.01 10^3/uL (1.8-7.7) 10/21/23 18:59 Lymph # (Auto) 1.9 10^3/uL (0.8-4.8) 10/21/23 18:59 [place] # (Auto) 0.4 10^3/uL (0.2-0.9) 10/21/23 18:59 Eos # (Auto) 0.2 10^3/uL (0.0-0.8) 10/21/23 18:59 Baso # (Auto) 0.0 10^3/uL (0.0-0.1) 10/21/23 18:59 Nucleated RBC % (auto) 0 % 10/21/23 18:59 Nucleated RBCs # 0.0 /100WBC 10/21/23 18:59 No radiology studies performed this visit Discharge Plan Discharge Patient Disposition: Admitted As Inpatient Clinical Impression: Suicidal ideation Condition: Stable Coding Level of Care Code ED Splunk Developer for Yony Bunn
[2023-10-21 19:12] LABS: Basophils % 0.5 %; Eosinophils # 0.2 10^3/uL (0.0-0.8); Eosinophils % 2.7 %; Hematocrit 34.1 % (36-47); Lymphocytes # 1.9 10^3/uL (0.8-4.8); Lymphocytes % 34.4 %; Mean Corpuscular HGB Conc 31.7 g/dL (30-55); Mean Corpuscular Hemoglobin 29.2 pg (27-33); Mean Corpuscular Volume 92.2 fl (85-98); Mean Platelet Volume 11.1 fL (7.4-10.4); Monocytes # 0.4 10^3/uL (0.2-0.9); Monocytes % 6.4 %; Neutrophils # 3.01 10^3/uL (1.8-7.7); Neutrophils % 55.1 %; Nucleated Red Blood Cells % 0 %; Platelet Count 191 10^3/cmm (157-399); Red Cell Distribution Width 13.4 % (12.1-15.1); White Blood Count 5.47 10^3/uL (3.29-11.43)
[2023-10-21 19:41] LABS: Alanine Aminotransferase 13 U/L (0-33); Alkaline Phosphatase 71 U/L (35-105); Anion Gap 17.5 (5-19); Aspartate Amino Transferase 16 U/L (0-32); Blood Urea Nitrogen 37 mg/dL (6-20); Calcium 9.5 mg/dL (8.5-10.5); Carbon Dioxide 20 mmol/L (22-29); Chloride 105 mmol/L (98-107); Globulin 3.2 g/dL (1.3-4.6); Glomerular Filtration Rate 58.2 mL/min (90-130); Glucose 194 mg/dL (65-115); Osmolality Calculated 298 mOsm/kg (285-295); Potassium 5.5 mmol/L (3.5-5.1); Sodium 137 mmol/L (136-145); Thyroid Stimulating Hormone 3.59 uIU/mL (0.27-4.20); Total Bilirubin 0.2 mg/dL (0.15-1.2); Total Protein 7.2 g/dL (6.6-8.7)
[2023-10-21 19:42] LABS: Acetaminophen < 5.0 ug/mL (10-30); Alcohol Level < 10 mg/dL (0-10); Salicylate < 0.3 mg/dL (3-10)
[2023-10-21 19:47] LABS: Amphetamines Screen Urine Negative (Negative); Barbiturates Screen Urine Negative (Negative); Benzodiazepines Screen Urine Negative (Negative); Cocaine Screen Urine Negative (Negative); Opiate Screen Urine Negative (Negative); PCP Screen Urine Negative (Negative); THC Screen Urine Negative (Negative)
--- NOTE | 2023-10-21 19:54 | PC.NURSE ---
96 Hour Involuntary Hold Patient Rights have been read to patient and a copy of the same has been provided to her. Sewing Techniques Demonstrator Valentine Awan was present at bedside.
[2023-10-21 20:14] VITALS: BP 172/102; PULSE 81; RESP 20; TEMP 36.8; O2SAT 99
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
[2023-10-21 21:41] LABS: Glucose Point of Care 131 mg/dL (70-110)
[2023-10-21 22:11] VITALS: O2SAT 98
[2023-10-21] MEDS: zolpidem 5 mg Tablet PO (22:20)
--- NOTE | 2023-10-21 22:22 | PC.NURSE ---
TEGROTOL REFUSED BY PT DUE TO PT STATING SHE TOOK IT THIS MORNING ON ACCIDENT.
[2023-10-21 22:24] VITALS: PULSE 80; O2SAT 98
[2023-10-21 22:26] VITALS: PULSE 80; RESP 17; O2SAT 98
[2023-10-22 05:55] VITALS: BP 155/94; PULSE 70; RESP 18; O2SAT 95
[2023-10-22] MEDS: levothyroxine 88 mcg Tablet PO (05:58)
[2023-10-22] MEDS: levothyroxine 100 mcg Tablet PO (05:58)
[2023-10-22] MEDS: acetaminophen 325 mg Tablet 650 MG PO ×2 (06:03→18:41)
[2023-10-22] MEDS: carvedilol 25 mg Tablet PO ×2 (07:58→18:29)
[2023-10-22] MEDS: FUROsemide 20 mg Tablet PO (07:58)
[2023-10-22] MEDS: hyDROXYzine 25 mg Capsule 50 MG PO (07:58)
[2023-10-22] MEDS: ropinirole 0.25 mg Tablet PO (07:58)
[2023-10-22 07:59] VITALS: BP 162/91
[2023-10-22] MEDS: fenofibrate 145 mg Tablet PO (07:59)
[2023-10-22] MEDS: losartan 50 mg Tablet 100 MG PO (07:59)
[2023-10-22 08:09] LABS: Glucose Point of Care 162 mg/dL (70-110)
[2023-10-22] MEDS: insulin lispro 100 unit/1 mL SUBCUT ×2 (09:09→18:29)
[2023-10-22] MEDS: insulin glargine 100 units/1 mL 80 UNIT SUBCUT (09:09)
[2023-10-22] MEDS: nystatin powder 30 gm Btl 1 APPLIC TOPICAL (09:26)
[2023-10-22 12:03] LABS: Glucose Point of Care 138 mg/dL (70-110)
[2023-10-22 14:00] VITALS: BP 113/60; PULSE 80; RESP 14; TEMP 37; O2SAT 93
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
[2023-10-22 17:54] LABS: Glucose Point of Care 201 mg/dL (70-110)
[2023-10-22] MEDS: lurasidone 20 mg Tablet PO (18:29)
[2023-10-22] MEDS: pantoprazole DR 40 mg Tablet PO (20:07)
[2023-10-22] MEDS: zolpidem 5 mg Tablet PO (20:07)
[2023-10-22] MEDS: atorvastatin 40 mg Tablet 20 MG PO (20:07)
[2023-10-22] MEDS: carBAMazepine XR (12 HR) 200 mg Tablet 800 MG PO (20:07)
[2023-10-22 20:23] LABS: Glucose Point of Care 225 mg/dL (70-110)
[2023-10-22 20:59] VITALS: BP 129/78; PULSE 76; RESP 18; TEMP 36.4; O2SAT 98
[2023-10-22 22:09] LABS: Glucose Point of Care 194 mg/dL (70-110)
[2023-10-23] MEDS: acetaminophen 325 mg Tablet 650 MG PO ×2 (02:14→18:45)
[2023-10-23 06:00] VITALS: BP 163/81; PULSE 82; RESP 18; O2SAT 98
[2023-10-23] MEDS: levothyroxine 100 mcg Tablet PO (06:10)
[2023-10-23] MEDS: levothyroxine 88 mcg Tablet PO (06:10)
[2023-10-23 08:07] LABS: Glucose Point of Care 187 mg/dL (70-110)
[2023-10-23 08:34] VITALS: BP 163/81
[2023-10-23] MEDS: losartan 50 mg Tablet 100 MG PO (08:34)
[2023-10-23] MEDS: fenofibrate 145 mg Tablet PO (08:35)
[2023-10-23] MEDS: carvedilol 25 mg Tablet PO ×2 (08:35→17:31)
[2023-10-23] MEDS: insulin lispro 100 unit/1 mL SUBCUT ×3 (08:35→17:31)
[2023-10-23] MEDS: carBAMazepine XR (12 HR) 200 mg Tablet PO (08:35)
[2023-10-23] MEDS: ropinirole 0.25 mg Tablet PO (08:35)
[2023-10-23] MEDS: insulin glargine 100 units/1 mL 80 UNIT SUBCUT (08:36)
[2023-10-23] MEDS: FUROsemide 20 mg Tablet PO ×2 (09:02→20:09)
[2023-10-23] MEDS: hyDROXYzine 25 mg Capsule 50 MG PO (11:20)
[2023-10-23 12:12] LABS: Glucose Point of Care 206 mg/dL (70-110)
--- NOTE | 2023-10-23 13:00 | W.PM.NPUPNS ---
Subjective NPU Subjective: 52-year-old female with bipolar type I admitted with suicidal ideation. The patient had reported no manic symptoms. She had continued to report depressed mood. She had stated that she was frustrated with her current lack of success of treating her depressed phase of her bipolar disorder. She had reported no excess sedation or side effects from her initial dose of Latuda 20 mg last night. She denied any racing thoughts. Mental Status Exam MSE Comments: This is an obese white female in hospital scrubs with limited grooming and adequate eye contact.? No abnormal movements except for mild psychomotor retardation.? She was cooperative with exam and appeared in mild distress. Her speech was normal in regards to rate rhythm and prosody.? Her mood was described as depressed. Affect was restricted in range and mood congruent. Thought process: linear, logical ? Thought content: Patient denied homicidal ideation and denies suicidal ideation today. She denied auditory or visual hallucinations.? Attention and concentration appeared intact and memory appeared reliable but none were formally tested.? She was alert and oriented x3.? Insight is poor and judgment is limited, but impulse control is limited. Vitals/I&O/Wt Last Vital Signs Temp 97.6 F 10/22/23 20:59 Pulse 82 10/23/23 06:00 Resp 18 10/23/23 06:00 BP 163/81 10/23/23 08:34 Pulse Ox 98 10/23/23 06:00 O2 Del Method Room Air 10/23/23 06:00 FiO2 21 10/21/23 22:24 Weight last 48 hrs Weight 110.677 kg Data NPU 10/21/23 18:59 10/21/23 18:59 A&P Assessment and plan (1) Bipolar 1 disorder, depressed: (2) Suicidal ideation: (3) Anxiety: Plan 52-year-old white female admitted with bipolar disorder and multiple medical problems and potential for signficant side effects from drug drug interactions. 1. Encourage individual, group and milieu therapy. 2. Recommend sober living treatment at the highest level of care to which the patient is willing to commit. 3. Continue q-15 minute checks for safety.? 4.?Tegretol XR 200mg in am, 800mg at night, Increase LATUDA to 40mg at 7PM (aware of increased metabolism of latuda when given with tegretol xl and will remain aware) 5.? Full thyroid panel in am. Involuntary Hold Information 96 Hour Hold: 96 Hour Involuntary Admission: Yes 96 Hour Hold Ending Date: 10/28/23 96 Hour Hold Ending Time: 18:46 Attestations NPU Medical Necessity Statement*: Inpatient hospitalization is medically necessary and the clinically appropriate intervention at this time. We will monitor medication to make changes as indicated. Patient will be in the hospital for over two midnights. Her likely length of stay 3 to 5 days. Coding Level of Care Code Acute Code for [facility] Fwd Diagnoses Bipolar 1 disorder, depressed F31.9 Suicidal ideation R45.851 Anxiety F41.9
[2023-10-23 14:00] VITALS: BP 147/87; PULSE 79; RESP 17; TEMP 36.8; O2SAT 97
[2023-10-23] MEDS: lurasidone 20 mg Tablet 40 MG PO (17:31)
[2023-10-23 17:42] LABS: Glucose Point of Care 217 mg/dL (70-110)
--- NOTE | 2023-10-23 18:48 | PC.NURSE ---
TYLENOL GIVEN AT 0930 FOR 06/03 IN LOWER BACK.
[2023-10-23 19:43] VITALS: BP 131/84; PULSE 82; RESP 18; O2SAT 98
[2023-10-23 20:08] LABS: Glucose Point of Care 158 mg/dL (70-110)
[2023-10-23] MEDS: carBAMazepine XR (12 HR) 200 mg Tablet 800 MG PO (20:09)
[2023-10-23] MEDS: atorvastatin 40 mg Tablet 20 MG PO (20:09)
[2023-10-23] MEDS: zolpidem 5 mg Tablet PO (20:10)
[2023-10-23] MEDS: pantoprazole DR 40 mg Tablet PO (20:10)
[2023-10-23 21:18] VITALS: PULSE 72; O2SAT 98
[2023-10-24 06:00] VITALS: BP 176/92; PULSE 77; RESP 18; TEMP 36.4; O2SAT 98
[2023-10-24] MEDS: levothyroxine 88 mcg Tablet PO (06:01)
[2023-10-24] MEDS: levothyroxine 100 mcg Tablet PO (06:01)
[2023-10-24] MEDS: acetaminophen 325 mg Tablet 650 MG PO ×2 (06:49→13:05)
[2023-10-24 07:48] LABS: Glucose Point of Care 193 mg/dL (70-110)
[2023-10-24 07:55] LABS: Free T4 Free Thyroxine 1.25 ng/dL (0.82-1.77); T3 Free 2.1 PG/ML (2.0-4.4); Thyroid Stimulating Hormone 5.26 uIU/mL (0.27-4.20)
[2023-10-24 08:07] VITALS: BP 176/92
[2023-10-24] MEDS: carBAMazepine XR (12 HR) 200 mg Tablet PO (08:07)
[2023-10-24] MEDS: ropinirole 0.25 mg Tablet PO (08:07)
[2023-10-24] MEDS: fenofibrate 145 mg Tablet PO (08:07)
[2023-10-24] MEDS: FUROsemide 20 mg Tablet PO (08:07)
[2023-10-24] MEDS: losartan 50 mg Tablet 100 MG PO (08:07)
[2023-10-24] MEDS: carvedilol 25 mg Tablet PO ×2 (08:07→17:07)
[2023-10-24] MEDS: insulin lispro 100 unit/1 mL SUBCUT ×3 (08:08→17:39)
[2023-10-24] MEDS: insulin glargine 100 units/1 mL 80 UNIT SUBCUT (08:08)
--- NOTE | 2023-10-24 09:10 | PC.NURSE ---
IN DAY ROOM CONVERSING WITH [facility]. PT DENIES SI/HI AND AVH AT THIS TIME. PT IS NOTED TO HAVE BRIGHT AND CHEERFUL AFFECT AND IS MAKING CONNECTIONS WITH [facility]. PT REPORTS SHE JUST HAD TYLENOL FOR PAIN AND MY PAIN IS BETTER. RATES ANXIETY 6/10 AND DEPRESSION 3/10. ALL QUESTIONS ANSWERED AND SUPPORT VOICED.
[2023-10-24 11:39] LABS: Glucose Point of Care 146 mg/dL (70-110)
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
[2023-10-24 14:29] VITALS: BP 176/92; PULSE 89; RESP 18; TEMP 36.9; O2SAT 96
[2023-10-24 17:16] LABS: Glucose Point of Care 162 mg/dL (70-110)
[2023-10-26 12:46] LABS: T4 Total 8.1 mcg/dL (5.1-11.9)
== END 2023-10-24 18:15 | disposition home or self-care (01) | DRG 885 ==
LOC: ER 19:38 → NP 19:56
PROVIDERS: Psychiatry & Neurology Psychiatry; Admitting Provider Psychiatry & Neurology Psychiatry; Emergency Provider Emergency Medicine; PCP Family Medicine; Visit Provider Psychiatry & Neurology Psychiatry
DX: F31.9 Bipolar disorder, unspecified (principal); R45.851 Suicidal ideations; E11.9 Type 2 diabetes mellitus without complications; F41.9 Anxiety disorder, unspecified; Z79.4 Long term (current) use of insulin; Z91.410 Personal history of adult physical and sexual abuse
CPT/HCPCS: 36415; 36416; 80053; 80306; 80307; 82962; 84436; 84439; 84443; 84481; 85025; 94660; 94664; 96372; 97150; 97165; 99285; J1815

== ENCOUNTER → 2023-10-26 16:30 | Outpatient (BNVA) | payer MEDICAID, SELFPAY ==
[2023-04-16 11:25] VITALS: BP 156/78; BMI 40.0
== END ==
PROVIDERS: PCP Family Medicine; Referring Provider Family Medicine; Visit Provider Internal Medicine Pulmonary Disease
DX: M25.641 Stiffness of right hand, not elsewhere classified (principal); M25.642 Stiffness of left hand, not elsewhere classified; R06.02 Shortness of breath
CPT/HCPCS: 36415; 82785; 85651; 86003; 86038; 86140; 86200; 86235; 86431

== ENCOUNTER → 2024-03-30 09:17 | Outpatient (BNVA) | payer MEDICAID, SELFPAY ==
[2024-03-30 10:37] VITALS: BP 156/78; BMI 40.0
== END ==
PROVIDERS: PCP Family Medicine; Visit Provider Internal Medicine
DX: E11.9 Type 2 diabetes mellitus without complications (principal); I50.9 Heart failure, unspecified; E03.9 Hypothyroidism, unspecified; Z79.4 Long term (current) use of insulin; Z79.890 Hormone replacement therapy
CPT/HCPCS: 36415; 80053; 80061; 82044; 83036; 83721; 84439; 84443; 99204

== ENCOUNTER 2024-06-20 09:05 | Outpatient (CLI) | payer MEDICAID, SELFPAY ==
[2024-04-05 09:31] VITALS: BP 124/77; BMI 42.1
[2024-06-20 10:29] LABS: Estmated Average Glucose 171; Hemoglobin A1C 7.6 % (4.0-6.0)
[2024-06-20 10:35] LABS: Creatinine Urine, Random 18 mg/dL (28-217); Microalbumin Random Urine 1 ug/dL (0-20)
[2024-06-20 10:37] LABS: Microalbum Creatinine Ratio Ur 56 mg/dL (0-20)
[2024-06-20 10:46] LABS: Alanine Aminotransferase 25 U/L (0-33); Albumin Level 4.1 g/dL (3.5-5.2); Alkaline Phosphatase 77 U/L (35-105); Anion Gap 18.2 (5-19); Aspartate Amino Transferase 37 U/L (0-32); Blood Urea Nitrogen 42 mg/dL (6-20); Calcium 9.3 mg/dL (8.5-10.5); Carbon Dioxide 25 mmol/L (22-29); Chloride 98 mmol/L (98-107); Chol HDL Ratio 4.71 mg/dL (0.0-4.40); Cholesterol 179 mg/dL (0-200); Free T4 Free Thyroxine 1.36 ng/dL (0.82-1.77); Globulin 3.2 g/dL (1.3-4.6); Glomerular Filtration Rate 36.3 mL/min (90-130); Glucose 257 mg/dL (65-115); HDL Cholesterol 38 mg/dL (60-100); Osmolality Calculated 303 mOsm/kg (285-295); Potassium 4.2 mmol/L (3.5-5.1); Sodium 137 mmol/L (136-145); Thyroid Stimulating Hormone 1.53 uIU/mL (0.27-4.20); Total Bilirubin 0.2 mg/dL (0.15-1.2); Total Protein 7.3 g/dL (6.6-8.7); Triglycerides 505 mg/dL (0-150)
[2024-06-20 11:23] LABS: LDL Cholesterol Direct 62 mg/dL (0-100)
== END 2024-06-20 09:06 | disposition home or self-care (01) ==
LOC: LAB 09:08
PROVIDERS: PCP Family Medicine; Visit Provider Internal Medicine
DX: E11.9 Type 2 diabetes mellitus without complications (principal)
CPT/HCPCS: 36415; 80053; 80061; 82044; 83036; 83721; 84439; 84443

== ENCOUNTER → 2024-06-21 07:55 | Outpatient (BNVA) | payer MEDICAID, SELFPAY ==
[2024-06-21 08:51] VITALS: BP 124/77; BMI 42.1
== END ==
PROVIDERS: PCP Family Medicine; Visit Provider Internal Medicine
DX: E11.9 Type 2 diabetes mellitus without complications (principal); E03.9 Hypothyroidism, unspecified; Z79.4 Long term (current) use of insulin; Z79.890 Hormone replacement therapy
CPT/HCPCS: 99214

== ENCOUNTER → 2024-08-08 10:16 | Outpatient (BNVA) | payer MEDICAID, SELFPAY ==
[2024-07-31 13:39] VITALS: BP 147/82; BMI 40.8
== END ==
PROVIDERS: PCP Family Medicine; Visit Provider Internal Medicine
DX: E11.9 Type 2 diabetes mellitus without complications (principal); E03.9 Hypothyroidism, unspecified; E78.2 Mixed hyperlipidemia; R10.9 Unspecified abdominal pain; Z79.4 Long term (current) use of insulin; Z79.890 Hormone replacement therapy
CPT/HCPCS: 99214

== ENCOUNTER 2024-10-12 10:06 | Outpatient (CLI) | payer MEDICAID, SELFPAY ==
[2024-07-31 13:39] VITALS: BP 147/82; BMI 40.8
[2024-10-12 11:01] LABS: Alanine Aminotransferase 14 U/L (0-33); Albumin Level 4.3 g/dL (3.5-5.2); Alkaline Phosphatase 90 U/L (35-105); Anion Gap 14.6 (5-19); Aspartate Amino Transferase 17 U/L (0-32); Blood Urea Nitrogen 44 mg/dL (6-20); Calcium 10.1 mg/dL (8.5-10.5); Carbon Dioxide 25 mmol/L (22-29); Chloride 99 mmol/L (98-107); Chol HDL Ratio 5.54 mg/dL (0.0-4.40); Cholesterol 205 mg/dL (0-200); Globulin 3.5 g/dL (1.3-4.6); Glucose 250 mg/dL (65-115); HDL Cholesterol 37 mg/dL (60-100); Osmolality Calculated 298 mOsm/kg (285-295); Potassium 4.6 mmol/L (3.5-5.1); Sodium 134 mmol/L (136-145); Total Bilirubin 0.2 mg/dL (0.15-1.2); Total Protein 7.8 g/dL (6.6-8.7); Triglycerides 705 mg/dL (0-150)
[2024-10-12 11:09] LABS: Estmated Average Glucose 209; Hemoglobin A1C 8.9 % (4.0-6.0)
[2024-10-12 11:09] LABS: Creatinine Urine, Random 11 mg/dL (28-217); Microalbumin Random Urine 1 ug/dL (0-20)
[2024-10-12 11:13] LABS: Microalbum Creatinine Ratio Ur 91 mg/dL (0-20)
[2024-10-12 11:17] LABS: LDL Cholesterol Direct 51 mg/dL (0-100)
[2024-10-12 12:22] LABS: Free T4 Free Thyroxine 1.03 ng/dL (0.82-1.77); Thyroid Stimulating Hormone 3.98 uIU/mL (0.27-4.20)
== END 2024-10-12 10:07 | disposition home or self-care (01) ==
LOC: LAB 10:09
PROVIDERS: PCP Family Medicine; Visit Provider Internal Medicine
DX: E11.9 Type 2 diabetes mellitus without complications (principal); E03.9 Hypothyroidism, unspecified
CPT/HCPCS: 36415; 80053; 80061; 82044; 83036; 83721; 84439; 84443

== ENCOUNTER 2025-01-12 09:03 | Outpatient (CLI) | payer MEDICAID, SELFPAY ==
[2024-10-19 11:29] VITALS: BP 127/78; BMI 42.3
[2025-01-12 10:08] LABS: Creatinine Urine, Random 12 mg/dL (28-217); Microalbum Creatinine Ratio Ur 83 mg/dL (0-20); Microalbumin Random Urine 1 ug/dL (0-20)
[2025-01-12 10:51] LABS: Estmated Average Glucose 197; Hemoglobin A1C 8.5 % (4.0-6.0)
[2025-01-12 11:12] LABS: Alanine Aminotransferase 18 U/L (0-33); Albumin Level 3.6 g/dL (3.5-5.2); Alkaline Phosphatase 91 U/L (35-105); Blood Urea Nitrogen 40 mg/dL (6-20); Carbon Dioxide 22 mmol/L (22-29); Chloride 95 mmol/L (98-107); Chol HDL Ratio 5.07 mg/dL (0.0-4.40); Cholesterol 147 mg/dL (0-200); Free T4 Free Thyroxine 1.27 ng/dL (0.82-1.77); Globulin 3.8 g/dL (1.3-4.6); Glomerular Filtration Rate 39.2 mL/min (90-130); Glucose 158 mg/dL (65-115); HDL Cholesterol 29 mg/dL (60-100); Osmolality Calculated 285 mOsm/kg (285-295); Sodium 131 mmol/L (136-145); Thyroid Stimulating Hormone 1.05 uIU/mL (0.27-4.20); Total Bilirubin 0.2 mg/dL (0.15-1.2); Total Protein 7.4 g/dL (6.6-8.7); Triglycerides 542 mg/dL (0-150)
[2025-01-12 11:15] LABS: Aspartate Amino Transferase 28 U/L (0-32)
[2025-01-12 11:27] LABS: LDL Cholesterol Direct 40 mg/dL (0-100)
== END 2025-01-12 09:04 | disposition home or self-care (01) ==
LOC: LAB 09:05
PROVIDERS: PCP Family Medicine; Visit Provider Internal Medicine
DX: E78.2 Mixed hyperlipidemia (principal); E11.9 Type 2 diabetes mellitus without complications; E03.9 Hypothyroidism, unspecified
CPT/HCPCS: 36415; 80053; 80061; 82044; 83036; 83721; 84439; 84443

== ENCOUNTER → 2025-04-26 10:23 | Outpatient (BNVA) | payer OTHER, SELFPAY ==
[2025-01-23 15:32] VITALS: BP 121/72; BMI 42.3
== END ==
PROVIDERS: PCP Family Medicine
DX: F31.61 Bipolar disorder, current episode mixed, mild (principal)
CPT/HCPCS: 80157

== ENCOUNTER 2025-06-01 07:51 | Outpatient (CLI) | payer MEDICAID, SELFPAY ==
[2025-01-23 15:32] VITALS: BP 121/72; BMI 42.3
[2025-06-01 08:55] LABS: Creatinine Urine, Random 29 mg/dL (28-217); Microalbum Creatinine Ratio Ur 34 mg/dL (0-20)
[2025-06-01 08:58] LABS: Alanine Aminotransferase 18 U/L (0-33); Albumin Level 4.0 g/dL (3.5-5.2); Alkaline Phosphatase 89 U/L (35-105); Anion Gap 17.4 (5-19); Aspartate Amino Transferase 23 U/L (0-32); Blood Urea Nitrogen 45 mg/dL (6-20); Calcium 9.3 mg/dL (8.5-10.5); Carbon Dioxide 25 mmol/L (22-29); Chloride 98 mmol/L (98-107); Cholesterol 179 mg/dL (0-200); Free T4 Free Thyroxine 1.17 ng/dL (0.82-1.77); Globulin 3.4 g/dL (1.3-4.6); Glucose 266 mg/dL (65-115); HDL Cholesterol 31 mg/dL (60-100); Osmolality Calculated 303 mOsm/kg (285-295); Potassium 4.4 mmol/L (3.5-5.1); Sodium 136 mmol/L (136-145); Thyroid Stimulating Hormone 1.88 uIU/mL (0.27-4.20); Total Protein 7.4 g/dL (6.6-8.7); Triglycerides 683 mg/dL (0-150)
[2025-06-01 09:01] LABS: Estmated Average Glucose 171; Hemoglobin A1C 7.6 % (4.0-6.0)
== END 2025-06-01 07:52 | disposition home or self-care (01) ==
PROVIDERS: PCP Family Medicine; Visit Provider Internal Medicine
DX: E11.9 Type 2 diabetes mellitus without complications (principal); E03.9 Hypothyroidism, unspecified
CPT/HCPCS: 36415; 80053; 80061; 82044; 83036; 83721; 84439; 84443

== ENCOUNTER → 2025-07-26 10:23 | Outpatient (BNVA) | payer MEDICAID, SELFPAY ==
[2025-06-18 10:19] VITALS: BP 138/75; BMI 42.6
== END ==
PROVIDERS: Visit Provider Nurse Practitioner
DX: R30.0 Dysuria (principal)
CPT/HCPCS: 81000

== ENCOUNTER → 2025-08-08 10:49 | Outpatient (BNVA) | payer OTHER, SELFPAY ==
[2025-06-18 10:19] VITALS: BP 138/75; BMI 42.6
== END ==
PROVIDERS: PCP Nurse Practitioner; Visit Provider Nurse Practitioner
DX: I50.9 Heart failure, unspecified (principal); E11.9 Type 2 diabetes mellitus without complications; R53.83 Other fatigue
CPT/HCPCS: 80048; 82607; 85025

== ENCOUNTER → 2025-08-14 11:25 | Outpatient (BNVA) | payer MEDICAID, SELFPAY ==
[2025-06-18 10:19] VITALS: BP 138/75; BMI 42.6
== END ==
PROVIDERS: PCP Nurse Practitioner; Visit Provider Nurse Practitioner
DX: R30.0 Dysuria (principal); R82.90 Unspecified abnormal findings in urine
CPT/HCPCS: 81000; 87086

== ENCOUNTER → 2025-08-20 09:12 | Outpatient (BNVA) | payer MEDICAID, SELFPAY ==
[2025-06-18 10:19] VITALS: BP 138/75; BMI 42.6
== END ==
PROVIDERS: PCP Nurse Practitioner; Visit Provider Internal Medicine Endocrinology, Diabetes & Metabolism
DX: E11.65 Type 2 diabetes mellitus with hyperglycemia (principal); E03.9 Hypothyroidism, unspecified; E78.2 Mixed hyperlipidemia; R10.9 Unspecified abdominal pain; M79.673 Pain in unspecified foot; I50.9 Heart failure, unspecified
CPT/HCPCS: 99214

== ENCOUNTER → 2025-08-27 09:06 | Outpatient (BNVA) | payer MEDICAID, SELFPAY ==
[2025-06-18 10:19] VITALS: BP 138/75; BMI 42.6
== END ==
PROVIDERS: PCP Nurse Practitioner; Visit Provider Internal Medicine
DX: J44.89 Other specified chronic obstructive pulmonary disease (principal); J82.83 Eosinophilic asthma; J98.4 Other disorders of lung; T78.40XA Allergy, unspecified, initial encounter; X58.XXXA Exposure to other specified factors, initial encounter; Z99.89 Dependence on other enabling machines and devices; Z87.891 Personal history of nicotine dependence; J44.9 Chronic obstructive pulmonary disease, unspecified
CPT/HCPCS: 36415; 85025; 86003; 99214